=== PATIENT | female | born 1970 | race Caucasian/White ===

== ENCOUNTER → 2019-01-27 12:28 | Outpatient (CLI) | payer BC, SELFPAY ==
--- NOTE | 2019-01-27 12:33 | XR_ITS ---
PROCEDURE: XR FOOT LT MIN 3V CLINICAL INDICATION: LT FOOT PAIN COMPARISON: No exams were available for comparison FINDINGS: No fracture or dislocation. No lytic or blastic change. There is normal mineralization. The joint spaces are well-preserved. No significant degenerative/arthritic changes. No erosive changes evident. There is a 14 mm calcaneal spur without erosive change Other findings:None. IMPRESSION: Calcaneal spur otherwise negative Dictated by: Kristian Ellison MD 01/27/2019 14:13 Signed by: <Electronically signed by Kristian Ellison MD in [place]> 01/27/2019 14:13
== END ==
PROVIDERS: PCP Internal Medicine Adolescent Medicine; Visit Provider Internal Medicine Adolescent Medicine
DX: M79.672 Pain in left foot (principal)
CPT/HCPCS: 73630

== ENCOUNTER → 2019-04-30 10:34 | Outpatient (CLI) | payer BC, SELFPAY ==
--- NOTE | 2019-04-30 10:38 | XR_ITS ---
PROCEDURE: XR FOOT WT BEARING LT 3V CLINICAL INDICATION: metatarsalgia, Capusulitis Foot pain COMPARISON: XR FOOT LT MIN 3V from 01/27/2019 FINDINGS: No fracture or dislocation. No lytic or blastic change. There is normal mineralization. The joint spaces are well-preserved. No significant degenerative/arthritic changes. No erosive changes evident. Other findings:There is borderline pes planus. There is a prominent calcaneal spur without erosive change. IMPRESSION: Borderline pes planus with prominent calcaneal spur Dictated by: Kristian Ellison MD 04/30/2019 15:00 Electronically signed by Kristian Ellison MD in [place] 04/30/2019 15:00
== END ==
PROVIDERS: PCP Internal Medicine Adolescent Medicine; Visit Provider Podiatrist
DX: M77.41 Metatarsalgia, right foot (principal); M77.42 Metatarsalgia, left foot; M77.52 Other enthesopathy of left foot and ankle
CPT/HCPCS: 73630

== ENCOUNTER → 2019-06-04 09:53 | Outpatient (CLI) | payer BC, SELFPAY ==
--- NOTE | 2019-06-04 09:58 | MM_ITS ---
PROCEDURE: MM DIG SCREENING MAMM BI W/CAD CLINICAL INDICATION: SCREENING There is a history of breast cancer in the patient's paternal grandmother and paternal great grandmother. There has been a previous biopsy right breast for benign disease. COMPARISON: MA MAMMO DIAG DIGITL RT from 12/07/2015 DIAG MAMMO W/CAD BILAT from 11/27/2016 MAMMO DIAGNOSTIC DIGITAL TOMOSYNTHESIS BILATERAL W CAD from 02/26/2018 TECHNIQUE: Standard CC and MLO images were obtained. R2 CAD reviewed. FINDINGS: Scattered diffuse fibroglandular densities are seen throughout both breasts. There is a biopsy clip just deep to the nipple right breast 12 o'clock position. A couple of benign-appearing microcalcifications are seen in each breast. There is a small asymmetric density inner quadrant right breast which was seen on the previous mammogram 02/26/2018 from [place], [place]. Additional spot views of this area was obtained on the previous study showing no suspicious abnormality. There are no suspicious microcalcifications. IMPRESSION: Fibrofatty parenchyma with no suspicious lesions seen BI-RAD Category: 2 Benign Finding(s) FOLLOW-UP: 1YR 1 Year Follow-up (A letter has been sent to the patient regarding results of the study.) Dictated by: Dr. Shaka Fowler MD 06/09/2019 11:[address] Shaka Fowler MD in [place] 06/09/2019 11:42
== END ==
PROVIDERS: PCP Internal Medicine Adolescent Medicine; Visit Provider Obstetrics & Gynecology Gynecology
DX: Z12.31 Encounter for screening mammogram for malignant neoplasm of breast (principal)
CPT/HCPCS: 77067

== ENCOUNTER 2019-07-27 09:00 | Outpatient (RCR) | payer OTHER, SELFPAY ==
--- NOTE | 2019-07-21 15:00 | HMH.PTOPEV ---
PT Outpatient Evaluation Rehab PT Outpatient Evaluation Start: 07/21/19 14:08 Freq: Status: Active Protocol: Document 07/21/19 14:47 PHOCAIO (Rec: 07/21/19 15:00 PHORNE [id number]) Electronically Signed By Perico Rangel, PT 07/21/19 14:47 Outpatient Therapy Subjective History Subjective History Pt is 49 yowf who presents with c/o pain in B feet, L > R , x ~ 4 mos. She reports pain is worst at 2nd MTP jt B. She reports her symptoms have been aggravated by continuing to do Karate until very recently. She had recent injections by [facility] which helped considerably since she stopped Karate. She reports PMH of hyperflexibility in jts, asthma, diverticulitis, celiac disease. Chief Complaint Pain Symptom Type Ache,Sharp,Burning,Numbness, Tingling Symptoms Relieved By Rest/Positioning Symptoms Aggravated By Standing,Walking Prior Functional Limitations None Current Functional Limitations Standing,Recreation Activity, Walking Symptom Description Constant but Variable Level of pain today (0-10) 3 Pain scale - at its worst (0-10) 9 Ankle/Foot Eval Gait Observation General Gait Pattern Observation Antalgic Gait Palpation Tenderness left Ankle/Foot Palpation Findings Tenderness Ankle/Foot Palpation Overall Comment 2nd MTP Special Tests Ankle Anterior Drawer Test Negative Left,Negative Right Ankle Eversion Test Negative Left,Negative Right Talar Tilt Test Negative Left,Negative Right Ankle Inversion (supination) Test Negative Left,Negative Right Ankle Posterior Drawer Test Negative Left,Negative Right Outpatient Therapy Assessment Impairments Problems/Impairmments Palpation Tenderness,Impaired Gait Pattern,Impaired Walking, Impaired Standing,Impaired Recreational Activities, Subjective C/O Pain,Impaired Self Care/Self Management Prognosis Rehab Potential Fair Clinical Impression Consistent with Diagnosis Yes Short Term Goals Number of Weeks 4 Decreased Palpation Tenderness Yes: to min Improve Gait Pattern with Assistive Yes Device Decrease Subjective C/O Pain Yes: 07/20 Patient to be Ind w/ 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
== END 2019-07-27 09:05 | disposition home or self-care (01) ==
LOC: PT 09:00
PROVIDERS: PCP Internal Medicine Adolescent Medicine; Visit Provider Podiatrist
DX: M77.52 Other enthesopathy of left foot and ankle (principal); M77.51 Other enthesopathy of right foot and ankle; M79.672 Pain in left foot
CPT/HCPCS: 97010; 97014; 97035; 97110; 97140; 97163; G0283

== ENCOUNTER 2019-12-27 17:13 | Emergency (ER) | payer SELFPAY ==
[2019-12-27 17:32] VITALS: BP 154/91; PULSE 106; RESP 20; TEMP 36.8; O2SAT 97; BMI 34.3
[2019-12-27 17:47] VITALS: BP 156/91; PULSE 107; RESP 16; TEMP 36.6; O2SAT 98; BMI 34.2
--- NOTE | 2019-12-27 17:55 | ECG_ITS ---
APPROVED REPORT Exam: Resting ECG HR:94 bpm ECG Measurements Heart Rate 94 AXES NH 146 P 71 QRSd 88 QRS 29 QT 366 T 43 QTc 457 <Conclusion> Normal sinus rhythm Normal ECG Electronically signed by : Pedro Luis Hernandez, 12/28/2019 17:37:17
[2019-12-27 17:56] VITALS: BP 138/81; PULSE 94; O2SAT 96
--- NOTE | 2019-12-27 17:56 | XR_ITS ---
PROCEDURE: XR CHEST PORTABLE CLINICAL HISTORY: CHEST PAIN COMPARISON: No exams were available for comparison FINDINGS: The cardiomediastinal silhouette and pulmonary vascularity are within normal limits. The lungs are clear without infiltrates, suspicious nodules, or pleural effusions. There are monitor lines overlying the chest. No acute bony abnormalities. IMPRESSION: No acute findings. Dictated by: Dr. Shaka Fowler MD 12/27/2019 19:[address] Shaka Fowler MD in [place] 12/27/2019 19:25
--- NOTE | 2019-12-27 17:59 | HMH.EDCP ---
ED Disposition Clinical Impression: Hypertension Qualifiers: Hypertension type: essential hypertension Qualified Code(s): I10 - Essential (primary) hypertension Disposition: Home, Self-Care Condition on Discharge: Good Instructions: DI for Atypical Chest Pain Referrals: Jose Luis Viramontes MD [Primary Care Provider] - - Critical Care Critical Care Time: No Attestation: On 12/27/19, the high probability of a clinically significant, sudden or life threatening deterioration of the following system(s) required my full and direct attention, intervention and personal management. The time I documented below is in addition to time spent performing reported procedures but includes the following listed in this critical care notation. Medical Decision Making - Medical Records Medical records reviewed: Yes: I reviewed the patient's medical records. - Sesar Inquiry Pt receiving controlled substance: No Sesar was queried for this patient: No Vital Signs: 12/27/19 17:32 12/27/19 17:47 12/27/19 17:56 Temperature 98.3 F 98 F Temperature Source Oral Oral Pulse Rate [Left Brachial] 106 H 107 H 94 H Respiratory Rate 20 16 Blood Pressure [Left Arm] 154/91 H 156/91 H 138/81 Blood Pressure Mean [Left Arm] 112 112 100 Blood Pressure Source [Left Arm] Automatic Cuff Automatic Cuff Blood Pressure Position [Left Arm] Sitting Sitting Sitting 02 Sat by Pulse Oximetry 97 98 96 Oxygen Delivery Method Room Air Room Air Room Air - Lab Data Lab results reviewed: Yes: I reviewed the patient's lab results. Lab Results 12/27/19 18:15: WBC 6.8, RBC 4.81, Hgb 15.6, Hct 43.1, MCV 89.7, MCH 32.5 H, MCHC 36.3 H, RDW 12.8, Plt Count 239, MPV 7.5, Neut % (Auto) 53.0, Lymph % (Auto) 38.6, Andrews % (Auto) 5.4, Eos % (Auto) 2.5, Baso % (Auto) 0.5, Neut # (Auto) 3.6, Lymph # (Auto) 2.6, Andrews # (Auto) 0.4, Eos # (Auto) 0.2, Baso # (Auto) 0.0 12/27/19 18:15: Sodium 137, Potassium 3.7, Chloride 98, Carbon Dioxide 25, Anion Gap 17.7 H, BUN 12, Creatinine 0.50 L, Estimated Creat Clear 224, Estimated GFR 132, Est GFR ( Amer) 160, Glucose 198 H, Calcium 10.0 12/27/19 18:15: NT-Pro-B Natriuret Pep 20.1 Result diagrams: 12/27/19 18:15 12/27/19 18:15 Orders (Tests/Meds): ORDERS Category Date Time Status XR chest portable Stat Exams 12/27/19 17:56 Taken Basic Metabolic Panel Stat Lab 12/27/19 18:15 Results Trop T [Troponin I] Stat Lab 12/27/19 18:15 Results Troponin I Q3H Lab 12/27/19 21:00 Ordered Troponin I Q3H Lab 12/28/19 00:00 Ordered - ECG Data Tracing #1 Normal Sinus Rhythm: Yes Chest Pain HPI - General Chief Complaint: Chest Pain Stated Complaint: Problem with blood pressure Time Seen by Provider: 12/27/19 17:59 Mode of Arrival: Ambulatory Source of Information: Patient Limitations: No Limitations Description of Symptoms (Recalled from ER Triage Doc. by RN): PT SENT TO ED FROM [facility] FOR EVAL FOR C/O INDIGESTION, GENERALIZED WEAKNESS, LT SIDE NECK AND JAW PRESSURE STARTING TODAY. PT STATES I JUST DIDN'T FEEL RIGHT, I CAN'T EXPLAIN IT SEEN SATURDAY BY PCP FOR HTN STARTED HCTZ. PT DENIES SOB, VOMITING. - History of Present Illness HPI narrative: This is a 49-year-old female that presents with approximately 12-hour history of intermittent chest pain equivalent. Patient denies chest pain but reports feeling funny in her jaw . She also reports concern for her blood pressure reporting that she was recently placed on hydrochlorothiazide 12 mg p.o. daily due to elevated blood pressure of approximately 150/90 by her PCP. She reported this had only been started 3 days ago but her ported that by the next day her blood pressure had returned to normal. She does have concerned that her blood pressure is back near her premedication level of 150/90. She denies any shortness of breath lower extremity edema diaphoresis nausea vomiting orthopnea associated with her current symptoms. Symptoms are neither exacerbated or
--- NOTE | 2019-12-27 18:04 | PC.NURSE ---
Rad at bedside
[2019-12-27 18:21] LABS: Basophils % 0.5 % (0.1-2.0); Eosinophils # 0.2 K/mm3 (0.0-0.4); Eosinophils % 2.5 % (0.1-12.0); Hematocrit 43.1 % (37.0-47.0); Hemoglobin 15.6 g/dL (12.2-16.2); Lymphocytes # 2.6 K/mm3 (0.7-4.5); Lymphocytes % 38.6 % (10-50); Mean Corpuscular HGB Conc 36.3 g/dL (31.8-35.4); Mean Corpuscular Hemoglobin 32.5 pg (27.0-31.2); Mean Corpuscular Volume 89.7 fl (81-99); Mean Platelet Volume 7.5 fl (7.4-10.4); Monocytes # 0.4 K/mm3 (0.1-1.0); Monocytes % 5.4 % (1.7-9.3); Neutrophils # 3.6 K/mm3 (1.8-7.8); Platelet Count 239 K/mm3 (142-424); Red Blood Count 4.81 M/mm3 (4.20-5.40); Red Cell Distribution Width 12.8 % (11.5-17.5); White Blood Count 6.8 K/mm3 (4.8-10.8)
[2019-12-27 18:29] LABS: Anion Gap 17.7 mEq/L (5-15); Blood Urea Nitrogen 12 mg/dl (7-17); Carbon Dioxide 25 mmol/L (22.0-30.0); Chloride 98 mmol/L (98-107); Creatinine Clearance Estimated 224 mL/min (50-200); Estimated Glomerular Filt Rate 132 ml/min (>60); GFR (African American) 160 ML/MIN (>60); Glucose 198 mg/dl (74-100); Potassium 3.7 mmoL/L (3.5-5.1); Sodium 137 mmol/L (136-145)
[2019-12-27 18:38] LABS: NT Pro Brain Natriuretic Pep. 20.1 pg/mL (0-125)
[2019-12-27 18:49] LABS: Troponin I < 0.01 ng/ml (0.00-0.034)
[2019-12-27 18:56] VITALS: BP 138/81; PULSE 92; RESP 16; TEMP 36.6; O2SAT 97
== END 2019-12-27 18:58 | disposition home or self-care (01) ==
LOC: UTC 17:21 → ER 17:37
PROVIDERS: Emergency Medicine; Emergency Provider Emergency Medicine; PCP Internal Medicine Adolescent Medicine
DX: R68.84 Jaw pain (principal); I10 Essential (primary) hypertension; J45.909 Unspecified asthma, uncomplicated; Z88.5 Allergy status to narcotic agent; Z79.899 Other long term (current) drug therapy
CPT/HCPCS: 71045; 80048; 83880; 84484; 85025; 93005; 99283

== ENCOUNTER 2020-01-16 20:42 | Emergency (ER) | payer MEDICAID, SELFPAY ==
--- NOTE | 2020-01-16 21:06 | XR_ITS ---
PROCEDURE: XR FOOT RT MIN 3V CLINICAL INDICATION: horse jumped on patients foot Pain right COMPARISON: XR FOOT WT BEARING LT 3V from 04/30/2019 FINDINGS: There does appear to be cortical discontinuity along the medial aspect and mid aspect of the distal phalanx of the great toe suggesting a nondisplaced fracture age indeterminate. Please correlate with patient's area of pain and tenderness. The joint spaces are well-preserved. No significant degenerative/arthritic changes. No erosive changes evident. Other findings:None. IMPRESSION: Possible nondisplaced fracture of the great toe distal phalanx Dictated b Kristian Ellison MD 01/17/2020 07:02 Kristian Ellison MD in [place] 01/17/2020 07:02
[2020-01-16 21:07] VITALS: BP 141/79; PULSE 93; RESP 14; TEMP 36.7; O2SAT 100; BMI 34.0
--- NOTE | 2020-01-16 21:19 | HMH.EDUTC ---
[facility] Disposition Clinical Impression: Contusion Qualifiers: Encounter type: initial encounter Contusion area: foot Laterality: right Qualified Code(s): S90.31XA - Contusion of right foot, initial encounter Disposition: Home, Self-Care Condition on Discharge: Good Instructions: Contusion Additional Instructions: elevated ice 20 mins then remove for 20 mins and repeat ever hour if needed follow up with ortho if symtpoms worsen or do not improve return or be seen in ed keep brace in place until cleared by ortho Referrals: Samir Young MD [Primary Care Provider] - Manda Goncalves MD [Physician] - Time of Disposition: 21:25 Medical Decision Making - Sesar Inquiry Pt receiving controlled substance: No Vital Signs: 01/16/20 21:07 Temperature 98.1 F Temperature Source Oral Pulse Rate [Radial] 93 H Respiratory Rate 14 Blood Pressure [Right Arm] 141/79 H Blood Pressure Mean [Right Arm] 99 Blood Pressure Source [Right Arm] Automatic Cuff Blood Pressure Position [Right Arm] Sitting 02 Sat by Pulse Oximetry 100 Oxygen Delivery Method Room Air Orders (Tests/Meds): ORDERS Category Date Time Status XR foot RT min 3V Stat Exams 01/16/20 21:06 Taken - Radiology Data #1 Image(s): Foot/Toes Image Reviewed: Yes I reviewed the patient's radiology image w/the ED provider Preliminary Findings: No Fracture Seen [facility] HPI - General Chief complaint: Urgent Treatment Center Stated complaint: AO [id number] @1900 R foot injury Time Seen by Provider: 01/16/20 21:20 Mode of Arrival: Ambulatory Source of Information: Patient Limitations: No Limitations Description of Symptoms (Recalled from Triage Doc. by RN): horse jumped on right foot HEENT Symptoms (Recalled from RN notes): No Resp Symptoms (Recalled from RN notes): No Skin Symptoms (Recalled from RN notes): No MS Symptoms (Recalled from RN notes): Yes Functional Status (Recalled from RN notes): wnl - History of Present Illness Provider Complaint: 49 yr female presents for rt foot injury. Pt states at 7 pm she was steppped on by her horse and now she can not move the first four toes on her rt foot. - Related Data Home Medications Medication Instructions Recorded Confirmed Albuterol Sulfate [Albuterol 8.5 gm IH DAILYP PRN 12/27/19 12/27/19 Sulfate Hfa] Budesonide/Formoterol Fumarate 1 puff IH DAILY 12/27/19 12/27/19 [Symbicort 80-4.5 Mcg Inhaler] Diclofenac Sodium [Voltaren 100gm 1 applicatio TP TID 12/27/19 12/27/19 Topical Gel] hydroCHLOROthiazide 12.5 mg PO DAILY 12/27/19 12/27/19 [Hydrochlorothiazide 12.5mg Tab] Allergies Allergy/AdvReac Type Severity Reaction Status Date / Time codeine Allergy Verified 12/27/19 17:45 - Worker's Comp Is this a Worker's Comp case?: No [facility] History - Hepatitis A Screen Drug use history?: No High risk sexual behaviors?: No History of sexually transmitted infection?: No Currently employed?: No Childcare worker?: No Do you have indoor plumbing?: Yes Do you have electricity?: Yes Attestation statement:: This patient has been screened for Hepatitis A risk factors. I have reviewed the patient's past medical history: Yes Medical History: Reports:: Asthma Other Medical History: Reports: Sickle Cell Disease, Other Laterality Cases: Bilateral: Carpal Tunnel Release Other Surgeries: Yes: No Previous Surgery Fractures: Yes Comment: removal of sigmoid colon - Social History Smoking Status: Never smoker Alcohol Intake: never Alcohol Intake Frequency:: holidays/special occasions only Occupational Status: other Family Hx:: Coronary Artery Disease, Heart Attack, Cancer, Hypertension ROS Obtained: Yes Systems reviewed as appropriate & no additional complaints - Constitutional Constitutional: Reports system reviewed and no additional complaints, except as docu, Denies fever(s) - Eyes Eyes: Reports system reviewed and no additional complaints, except as docu, Denies change in visio
[2020-01-16 21:45] VITALS: BP 141/79; PULSE 93; RESP 14; TEMP 36.7; O2SAT 100
== END 2020-01-16 21:46 | disposition home or self-care (01) ==
PROVIDERS: Emergency Provider Nurse Practitioner Family; PCP Emergency Medicine
DX: S90.31XA Contusion of right foot, initial encounter (principal); W55.19XA Other contact with horse, initial encounter; Y92.73 Farm field as the place of occurrence of the external cause; Z88.6 Allergy status to analgesic agent; J45.909 Unspecified asthma, uncomplicated
CPT/HCPCS: 73630; 99201

== ENCOUNTER → 2020-01-19 18:02 | Outpatient (CLI) | payer MEDICAID, SELFPAY ==
[2020-01-19 18:36] LABS: Basophils % 0.4 % (0.1-2.0); Eosinophils # 0.1 K/mm3 (0.0-0.4); Eosinophils % 1.9 % (0.1-12.0); Hematocrit 43.6 % (37.0-47.0); Hemoglobin 15.4 g/dL (12.2-16.2); Lymphocytes # 2.3 K/mm3 (0.7-4.5); Lymphocytes % 36.7 % (10-50); Mean Corpuscular HGB Conc 35.4 g/dL (31.8-35.4); Mean Corpuscular Hemoglobin 32.2 pg (27.0-31.2); Mean Corpuscular Volume 91.1 fl (81-99); Mean Platelet Volume 8.5 fl (7.4-10.4); Monocytes # 0.3 K/mm3 (0.1-1.0); Monocytes % 5.4 % (1.7-9.3); Neutrophils # 3.4 K/mm3 (1.8-7.8); Neutrophils % 55.6 % (37.0-80.0); Platelet Count 283 K/mm3 (142-424); Red Blood Count 4.79 M/mm3 (4.20-5.40); Red Cell Distribution Width 12.6 % (11.5-17.5); White Blood Count 6.2 K/mm3 (4.8-10.8)
[2020-01-19 18:51] LABS: Alanine Aminotransferase 100 U/L (12-78); Albumin Level 4.6 g/dl (3.5-5.0); Albumin/Globulin Ratio 1.6 (1.1-1.8); Alkaline Phosphatase 70 U/L (38-126); Anion Gap 18.3 mEq/L (5-15); Aspartate Amino Transferase 98 U/L (14-36); Bilirubin,Total 1.2 mg/dl (0.2-1.3); Blood Urea Nitrogen 13 mg/dl (7-17); Calcium 9.7 mg/dl (8.4-10.2); Carbon Dioxide 23 mmol/L (22.0-30.0); Chloride 101 mmol/L (98-107); Chol/HDL Ratio 5.1 (1-3.5); Cholesterol 275 mg/dl (140-200); Estimated Glomerular Filt Rate 132 ml/min (>60); GFR (African American) 160 ML/MIN (>60); Globulin 2.9 g/dL (1.3-3.2); Glucose 159 mg/dl (74-100); HDL Cholesterol 54 mg/dl (40-60); Potassium 4.3 mmoL/L (3.5-5.1); Sodium 138 mmol/L (136-145); Total Protein,Serum 7.5 g/dl (6.3-8.2)
[2020-01-19 18:55] LABS: Triglycerides 490 mg/dl (30-150)
[2020-01-19 19:11] LABS: T4 (Thyroxine) 11.2 ug/dl (5.53-11.0)
[2020-01-19 19:12] LABS: Direct LDL Cholesterol 152.65 mg/dL (100-129)
[2020-01-19 19:13] LABS: 25-OH Vitamin D, Total 37.1 ng/mL (30-100)
[2020-01-19 19:24] LABS: Thyroid Stimulating Hormone 4.03 uIU/mL (0.465-4.68)
== END ==
PROVIDERS: Visit Provider Nurse Practitioner Family
DX: I10 Essential (primary) hypertension (principal); J45.20 Mild intermittent asthma, uncomplicated
CPT/HCPCS: 80053; 80061; 82306; 84436; 84443; 85025

== ENCOUNTER → 2020-03-17 14:01 | Outpatient (CLI) | payer OTHER, MEDICAID, SELFPAY ==
--- NOTE | 2020-03-17 | US_ITS ---
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 R2 CAD reviewed. FINDINGS: There is average fibroglandular tissue. Post biopsy changes are present on the right with a clip in the upper aspect of the right breast slightly medial. There is an area of asymmetric density in the medial aspect of the right breast which appears stable and does appear to compress out on focal spot compression views.. Benign-appearing calcifications are noted. There is a stable nodular density in the retroareolar region. Scattered fibroglandular elements noted on the left. Asymmetry noted in the superior left breast felt to be due to fibroglandular tissue stable. There is an area of asymmetry in the central aspect of the left breast measuring approximately 6 mm and does not appear significantly changed dating back to 11/27/2016. Right breast ultrasound: Shadowing noted in the 12 o'clock region possibly due to biopsy clip. In the 4 o'clock region there is a hyperechoic nodule at 12 mm with central area of decreased echogenicity possibly due to a lipoma. No suspicious nodules are evident. Small nodes are present in the axilla. Left breast ultrasound: A subcutaneous hyperechoic nodules present at 10 o'clock measuring 16 mm with some decreased echogenicity centrally and may be due to a lipoma. Small nodes are present in the axilla. IMPRESSION: BI-RAD Category: 2 Benign Finding(s) FOLLOW-UP: 1YR 1 Year Follow-up (A letter has been sent to the patient regarding results of the study.) Dictated by: Kristian Ellison MD 03/21/2020 10:06 Kristian Ellison MD in [place] 03/21/2020 10:06
== END ==
PROVIDERS: PCP Internal Medicine Adolescent Medicine; Visit Provider Obstetrics & Gynecology Gynecology
DX: N64.52 Nipple discharge (principal)
CPT/HCPCS: 76641; 77062; 77066; G0279

== ENCOUNTER → 2020-09-29 13:06 | Outpatient (CLI) | payer OTHER, SELFPAY | PROVIDERS: PCP Internal Medicine Adolescent Medicine; Visit Provider Nurse Practitioner Family | DX: Z01.812 Encounter for preprocedural laboratory examination (principal); Z11.52 Encounter for screening for COVID-19; M79.673 Pain in unspecified foot | CPT/HCPCS: U0003 ==

== ENCOUNTER → 2020-12-31 10:20 | Outpatient (CLI) | payer OTHER, SELFPAY | PROVIDERS: PCP Internal Medicine Adolescent Medicine; Visit Provider Internal Medicine Adolescent Medicine | DX: Z20.822 Contact with and (suspected) exposure to COVID-19 (principal) | CPT/HCPCS: U0003 ==

== ENCOUNTER → 2021-06-08 11:08 | Outpatient (CLI) | payer OTHER, SELFPAY | PROVIDERS: Visit Provider Nurse Practitioner | DX: Z20.822 Contact with and (suspected) exposure to COVID-19 (principal) | CPT/HCPCS: C9803; U0003; U0005 ==

== ENCOUNTER → 2021-06-27 15:38 | Outpatient (CLI) | payer OTHER, SELFPAY | PROVIDERS: PCP Internal Medicine Adolescent Medicine; Visit Provider Internal Medicine Adolescent Medicine | DX: U07.1 COVID-19 (principal); R68.89 Other general symptoms and signs | CPT/HCPCS: 87275; 87276; C9803; U0003; U0005 ==

== ENCOUNTER 2022-04-10 06:31 | Day surgery (SDC) | payer OTHER, SELFPAY ==
[2022-04-10 07:00] VITALS: BP 134/64; PULSE 88; RESP 18; TEMP 36.1; O2SAT 95; BMI 31.3
[2022-04-10 07:07] LABS: POC Glucose,Bedside 120 (70-110)
--- NOTE | 2022-04-10 07:18 | EXP.ANES.CKL ---
PFSH PFS Medical History (Updated 04/10/22 @ 06:56 by Carmine Sanchez RN) Anxiety and depression Asthma Celiac disease Diabetes Diverticulitis HLD (hyperlipidemia) HTN (hypertension) Hypothyroid Surgical History (Updated 04/10/22 @ 06:57 by Carmine Sanchez RN) History of carpal tunnel release History of colon resection History of foot surgery Family History (Updated 04/10/22 @ 06:58 by Carmine Sanchez RN) Other Family history of cancer Family history of cardiomyopathy Social History (Updated 04/10/22 @ 06:59 by Carmine Sanchez RN) Smoking Status: Never smoker alcohol intake: never substance use type: denies use current occupational status: employed Travel in the last 8 weeks: None household members: spouse and family housing: house [facility] Anesthesia Checklist Patient Identification Patient Identification: Arm Band and Family Structural Data Admitted From: Direct Admit Planned Operative Procedure/s: EGD Consent for Planned Operative Procedure(s) Verified: Yes Verified Documents: Surgical Consent and History and Physical NPO Status Verified Time NPO: 00:00 Additional verifications Patient : No Anesthesia Reactions: No Hx Blood Transfusions: No Blood Transfusion Reaction: No Cephalosporin Allergy: No Previous Colonoscopy: Yes Airway Assessment C-Spine Mobility Assessed: Yes TMJ Mobility Assessed: Yes Dentition: Good Dentition Neurological Assessment Level of Consciousness: Awake, Alert, Appropriate and Follows Commands Hx Seizures: No Numbness or tingling in extremities: No Genitourinary Assessment Voided poison information specialist to O.R.: Yes Anesthesia Plan Anesthesia Risk discussed: Yes ASA Class: II Anesthesia Type: MAC
[2022-04-10 07:39] LABS: Urine Pregnancy, HCG Qual. Negative (Negative)
[2022-04-10 07:44] VITALS: O2SAT 95
--- NOTE | 2022-04-10 08:03 | HMH.SCOPE ---
Procedure: Date: 04/10/22 Patient Date of :: 1970 Procedure Performed:: Esophagogastroduodenoscopy with biopsy Indications:: Upper abdominal pain Dyspepsia Abdominal bloat/belching Performing Provider:: Yossi Luis MD Referring Provider:: Dr. Hernandez Sedation:: Monitored anesthesia care Procedure:: After informed consent was obtained the patient was taken to the endoscopy suite. Sedation ensued after the patient was transferred to the left lateral decubitus position. Pulse, blood pressure, and oxygen saturation were monitored throughout the procedure. The endoscope was advanced beyond the duodenal bulb. Retroflexion within the gastric lumen was accomplished. The gastroscope was carefully removed and the patient was transferred to recovery in stable condition. Please see findings and specimens below for detail. Findings:: Gastroesophageal junction at 42 cm Patchy inflammation distally Focal lobulated inflammatory change in antrum (possible healed ulcer ) Specimens:: Biopsy of antrum (lobulated focal inflammatory change) Recommendations:: Follow-up pathology Continue proton pump inhibition May benefit from UGI/SBFT May benefit from gastric emptying scan May benefit from gastroenterology consultation Complications:: No immediate Estimated blood obtained (mL): 1
[2022-04-10 08:07] VITALS: BP 122/72; PULSE 85; RESP 16; TEMP 36.6; O2SAT 97
[2022-04-10 08:17] VITALS: BP 125/81; PULSE 83; RESP 16; O2SAT 95
[2022-04-10 08:27] VITALS: BP 136/83; PULSE 78; RESP 16; O2SAT 97
[2022-04-10 08:37] VITALS: BP 141/83; PULSE 81; RESP 16; TEMP 36.6; O2SAT 96
== END 2022-04-10 08:46 | disposition home or self-care (01) ==
PROVIDERS: PCP Internal Medicine Adolescent Medicine; Visit Provider Surgery
PROC: 0DJ08ZZ Inspection of Upper Intestinal Tract, Via Natural or Artificial Opening Endoscopic (ICD-10-PCS; CPT 43235; principal; 2022-04-10 07:30)
DX: K31.9 Disease of stomach and duodenum, unspecified (principal); R10.13 Epigastric pain; Z79.899 Other long term (current) drug therapy; E11.9 Type 2 diabetes mellitus without complications
CPT/HCPCS: 43239; 81025; 82962

== ENCOUNTER 2022-10-16 08:30 | Outpatient (RCR) | payer MEDICAID, SELFPAY | END 2022-10-16 08:35 | disposition home or self-care (01) | LOC: PT 08:30 | PROVIDERS: PCP Internal Medicine Adolescent Medicine; Visit Provider Physician Assistant | DX: M19.90 Unspecified osteoarthritis, unspecified site (principal); M46.1 Sacroiliitis, not elsewhere classified | CPT/HCPCS: 97010; 97014; 97110; 97140; 97163; G0283 ==

== ENCOUNTER → 2022-11-09 15:12 | Outpatient (CLI) | payer MEDICAID, SELFPAY | PROVIDERS: PCP Internal Medicine Adolescent Medicine; Visit Provider Physician Assistant | DX: R35.0 Frequency of micturition (principal); B96.29 Other Escherichia coli [E. coli] as the cause of diseases classified elsewhere | CPT/HCPCS: 87086; 87088; 87186 ==

== ENCOUNTER → 2023-04-02 14:37 | Outpatient (CLI) | payer MEDICAID, SELFPAY ==
[2023-04-02 15:37] LABS: 25-OH Vitamin D, Total 53.9 ng/mL (30-100)
[2023-04-02 16:10] LABS: Vitamin B12 806 pg/mL (239-931)
== END ==
PROVIDERS: PCP Internal Medicine Adolescent Medicine; Visit Provider Physician Assistant
DX: F33.8 Other recurrent depressive disorders (principal); Z68.35 Body mass index [BMI] 35.0-35.9, adult
CPT/HCPCS: 36415; 82306; 82607

== ENCOUNTER 2023-10-23 10:51 | Outpatient (CLI) | payer MEDICAID, SELFPAY ==
[2023-10-23 11:19] LABS: Basophils # 0.1 K/mm3 (0-0.2); Basophils % 0.9 % (0.1-2.0); Eosinophils # 0.3 K/mm3 (0.0-0.4); Eosinophils % 4.9 % (0.1-12.0); Hemoglobin 14.7 g/dL (12.2-16.2); Lymphocytes # 2.2 K/mm3 (0.7-4.5); Lymphocytes % 38.5 % (10-50); Mean Corpuscular HGB Conc 32.6 g/dL (31.8-35.4); Mean Corpuscular Hemoglobin 30.3 pg (27.0-31.2); Mean Platelet Volume 8.1 fl (7.4-10.4); Monocytes # 0.3 K/mm3 (0.1-1.0); Monocytes % 5.2 % (1.7-9.3); Neutrophils # 2.8 K/mm3 (1.8-7.8); Neutrophils % 50.5 % (37.0-80.0); Platelet Count 201 K/mm3 (142-424); Red Blood Count 4.84 M/mm3 (4.20-5.40); Red Cell Distribution Width 13.4 % (11.5-17.5); White Blood Count 5.6 K/mm3 (4.8-10.8)
== END 2023-10-23 23:59 | disposition home or self-care (01) ==
LOC: LAB 10:53
PROVIDERS: PCP Internal Medicine Adolescent Medicine; Visit Provider Allergy & Immunology
DX: L50.1 Idiopathic urticaria (principal); L50.8 Other urticaria; D72.10 Eosinophilia, unspecified
CPT/HCPCS: 36415; 85025

== ENCOUNTER 2025-06-08 15:03 | Outpatient (CLI) | payer MEDICAID, SELFPAY ==
--- OUTSIDE RECORDS SUMMARY | 2024-06-29 04:00 | XMS_ITS ---
Author Organization [facility] Address [address] [place], [place] [address] Care Team Providers Care Station Cashier Name Role Phone Pedro Luis Hernandez Primary Care Provider Pedro Luis Hernandez Unavailable Unavailable REASON FOR VISIT 4 month check up Encounters Encounter Location Date Provider Diagnosis [facility] [address] [place], [place] [address] 06/29/2024 Pedro Luis Hernandez Plan Of Treatment Next Appt Details Provider Name:Pedro Luis Hernandez, 08/11/2025 09:00:00 AM, [address], [address], [place], [address], Progress Notes * Yoko GRIGGSDOB:1970 (55 yo F)Acc No.[id number]:06/29/2024 Progress Notes Patient: Yoko [place] Provider: Andrea Hernandez MD :1970 A ge:54 Y S ex:Female Date:06/29/2024 Address:[address] [id number] Subjective: * Chief Complaints: * 4 month check up * Electronic signature of Rufino Hernandez MD FAAP on 06/08/2025 at 03:06 PM EST Sign off status: Pending * Provider: Andrea Hernandez MD Date: 0 06/29/2024 Generated for Emma barnett/Roselia/Dania on: 1 03:06 PM EST
--- OUTSIDE RECORDS SUMMARY | 2024-09-12 16:30 | XMS_ITS ---
Author Organization [facility] D [facility] Address [address] [place] [address] Care Team Providers Care Promotional Demonstrator Name Role Phone Pedro Luis Hernandez Primary Care Provider Pedro Luis Hernandez Unavailable Unavailable Migration, Provider Unavailable Unavailable Allergies Allergen (clinical drug ingredient) Drug/Non Drug Allergy documented on EMR Reaction Allergy Type Onset Date Status hydrochlorothiazide hydroCHLOROthiazide dizziness D rug Allergy Active codeine Codeine hives, SOA Drug Allergy Active REASON FOR VISIT [facility] To [facility] Conversion Encounter Medications Medication SIG (Take, Route, Frequency, Duration) Notes Start Date End Date Status PEN NEEDLES, 31GX1/4 1 SUBCUTANEOUSLY ONCE WEEKLY; Duration: 30 DAYS *Please review for potential replacement for e-prescription and drug interaction check* Active Losartan Potassium 25 MG Tablet 1 tab(s) orally 1 tab 3 times a week, 1/2 tab all other days; Duration: 84 days Active Albuterol Sulfate HFA 108 (90 Base) MCG/ACT Aerosol Solution 2 INH inhaled every 6 hours as needed for wheezing or shortness of breath; Duration: 30 days 05/18/2024 Active Atorvastatin Calcium 40 MG Tablet 1 tab(s) orally once a day; Duration: 90 day(s) Active metFORMIN HCl 1000 MG Tablet 1 tab(s) orally 2 times a day; Duration: 30 day(s) Active Aspirin 81 MG Tablet Delayed Release 1 tab(s) orally once a day Active VITAMIN B COMPLEX 100 once daily *Please review for potential replacement for e-prescription and drug interaction check* Active Multivitamin - Tablet 1 tab(s) orally once a day; Duration: 30 day(s) Active Diclofenac Sodium 1 % Gel as directed applied topically 4 times a day prn prn Active Famotidine 20 MG Tablet 1 tab(s) orally once a day; Duration: 90 days Active Melatonin 10 MG TABLET, EXTENDED RELEASE 1 TAB(S) ORALLY ONCE A DAY (AT BEDTIME) prn *Please review and pick correct strength-formulati on from Exanetspan options. If intended option is not shown, discontinue and re-order from Quick Search* Active Magnesium 400MG 1 TABLET ONCE A DAY *Please revi ew and pick correct strength-formulati on from Maizhuoan options. If intended option is not shown, discontinue and re-order from Quick Search* Active Synthroid 75 MCG Tablet 1 tab(s) orally once a day; Duration: 90 days Active Glimepiride 2 MG Tablet 1 tab(s) orally once a day; Duration: 30 days 07/15/2024 Active ZyrTEC Allergy 10 MG Tablet 2 tabs orally once a day Active Jardiance 25 MG Tablet 1 tab(s) orally once a day (in the morning); Duration: 90 days Active FLUoxetine HCl 40 MG Capsule 1 cap(s) orally once a day; Duration: 90 days Active Encounters Encounter Location Date Provider Diagnosis [facility] [address] [facility] [address] [facility] [address] [place] [address] 09/12/2024 Provider Migration Plan Of Treatment Medication Medication Name Sig Start Date Stop Date Notes Losartan Potassium 25 MG Tablet 1 tab(s) orally 1 tab 3 times a week, 1/2 tab all other days; Duration: 84 days Synthroid 75 MCG Tablet 1 tab(s) orally once a day; Duration: 90 days Glimepiride 2 MG Tablet 1 tab(s) orally once a day; Duration: 30 days 07/15/2024 Jardiance 25 MG Tablet 1 tab(s) orally o nce a day (in the morning); Duration: 90 days FLUoxetine HCl 40 MG Capsule 1 cap(s) or ally once a day; Duration: 90 days Next Appt Details Provider Name:Pedro Luis Hernandez, 08/11/2025 09:00:00 AM, [address] [place] [facility] [address] [facility], [address], [place], [address], Progress Notes * Yoko GRIGGSDOB:1970 (55 yo F)Acc No.[id number]:09/12/2024 Patient: Yoko England Provider: Phil Oreilly :1970 A ge:54 Y S ex:Female Date:09/12/2024 Address:[facility] [place], [id number] Pcp:Pedro Luis Hernandez Subjective: * Chief Complaints: * M ultum To [facility] Conversion Encounter * Medications: T akingZyrTEC Allergy 10 MG Tablet 2 tabs orally once a day Melatonin 10 MG TABLET, EXTENDED RELEASE 1 TAB(S) ORALLY ONCE A DAY (AT BEDTIME) , Notes to Pharmacist: prn *Please review and pick correct strength-formulation from Exanetspan options. If intended option is not shown, discontinue and re-order from Quick Search*Magnesium 400MG 1 TABLET ONCE A DAY , Notes to Pharmacist: *Please review and pick correct strength-formulation from Exanetspan options. If intended option is not shown, discontinue and re-order from Quick Search*Aspirin 81 MG Tablet Delayed Release 1 tab(s) orally once a day VITAMIN B COMPLEX 100 , Notes to Pharmacist: once daily *Please review for potential replacement for e-prescription and drug interaction check*Multivitamin - Tablet 1 tab(s) orally once a day Diclofenac Sodium 1 % Gel as directed applied topically 4 times a day prn , Notes to Pharmacist: prnFamotidine 20 MG Tablet 1 tab(s) orally once a day PEN NEEDLES, 31GX1/4 1 SUBCUTANEOUSLY ONCE WEEKLY , Notes to Pharmacist: *Please review for potential replacement for e-prescription and drug interaction check*Albuterol Sulfate HFA 108 (90 Base) MCG/ACT Aerosol Solution 2 INH inhaled every 6 hours as needed for wheezing or shortness of breath Atorvastatin Calcium 40 MG Tablet 1 tab(s) orally once a day metFORMIN HCl 1000 MG Tablet 1 tab(s) orally 2 times a day Taking ZyrTEC Allergy 10 MG Tablet 2 tabs orally once a day Taking Melatonin 10 MG TABLET, EXTENDED RELEASE 1 TAB(S) ORALLY ONCE A DAY (AT BEDTIME) , Notes to Pharmacist: prn *Please review and pick correct strength-formulation from Exanetspan options. If intended option is not shown, discontinue and re-order from Quick Search*Taking Magnesium 400MG 1 TABLET ONCE A DAY , Notes to Pharmacist: *Please review and pick correct strength-formulation from Exanetspan options. If intended option is not shown, discontinue and re-order from Quick Search*Taking Aspirin 81 MG Tablet Delayed Release 1 tab(s) orally once a day Taking VITAMIN B COMPLEX 100 , Notes to Pharmacist: once daily *Please review for potential replacement for e-prescription and drug interaction check*Taking Multivitamin - Tablet 1 tab(s) orally once a day Taking Diclofenac Sodium 1 % Gel as directed applied topically 4 times a day prn , Notes to Pharmacist: prnTaking Famotidine 20 MG Tablet 1 tab(s) orally once a day Taking PEN NEEDLES, 31GX1/4 1 SUBCUTANEOUSLY ONCE WEEKLY , Notes to Pharmacist: *Please review for potential replacement for e-prescription and drug interaction check*Taking Albuterol Sulfate HFA 108 (90 Base) MCG/ACT Aerosol Solution 2 INH inhaled every 6 hours as needed for wheezing or shortness of breath Taking Atorvastatin Calcium 40 MG Tablet 1 tab(s) orally once a day Taking metFORMIN HCl 1000 MG Tablet 1 tab(s) orally 2 times a day * Allergies: C odeine: hives, SOAhydroCHLOROthiazide: dizziness Plan: * Treatment: * Electronic signature of Venecia bone Migration on 06/08/2025 at 03:07 PM EST Sign off status: Pending * Provider: Phil ha Migration Date: 0 09/12/2024 Generated for Emma barnett/Roselia/Dania on: 03:07 PM EST
--- OUTSIDE RECORDS SUMMARY | 2025-01-11 03:45 | XMS_ITS ---
Author Organization [facility] Address [address] [place] [address] [place], [place] [address] Care Team Providers Care Geneticist Name Role Phone Pedro Luis Hernandez Primary Care Provider Pedro Luis Hernandez Unavailable Unavailable REASON FOR VISIT 6 Month F/U Encounters Encounter Location Date Provider Diagnosis [facility] [address] [place] [address] [place], [place] [address] 01/11/2025 Pedro Luis Hernandez Plan Of Treatment Next Appt Details Provider Name:Pedro Luis Hernandez, 08/11/2025 09:00:00 AM, [address] [place] [address], [address], [place], [address], Progress Notes * Yoko GRIGGSDOB:1970 (55 yo F)Acc No.[id number]:01/11/2025 Progress Notes Patient: Yoko [place] Provider: Andrea Hernandez MD :1970 A ge:54 Y S ex:Female Date:01/11/2025 Address[id number] Subjective: * Chief Complaints: * 6 Month F/U * Electronic signature of Rufino Hernandez MD FAAP on 06/08/2025 at 03:06 PM EST Sign off status: Pending * Provider: Andrea Hernandez MD Date: 0 01/11/2025 Generated for Emma barnett/Roselia/Dania on: 1 03:06 PM EST
--- OUTSIDE RECORDS SUMMARY | 2025-04-28 13:15 | XMS_ITS | Encounter Summary ---
Author Organization [facility] Address [address] [place] [address] Care Team Providers Care [employer] Art Teacher Name Role Phone Pedro Luis Hernandez MD Primary Care Provider [phone] Encounter Details Date Type Department Care Team (Latest Contact Info) Description 04/28/2025 1:15 PM EST - 04/28/2025 11:59 PM EST Hospital Encounter [facility] Breast [facility] [address] [address] Encounter for screening mammogram for malignant neoplasm of breast Discharge Disposition: Home or Self Care Social History Tobacco Use Types Packs/Day Years Used Date Smoking Tobacco: Never Smokeless Tobacco: Never Alcohol Use Standard Drinks/Week Comments No 0 (1 standard drink = 0.6 oz pure alcohol) Alcoholic Drinks/day: No history of alcohol use Comments No Sex and Gender Information Value Date Recorded Sex Assigned at Not on file Legal Sex Female 8:05 PM EDT Gender Identity Not on file Sexual Orientation Not on file documented as of this encounter Last Filed Vital Signs Vital Sign Reading Time Taken Comments Blood Pressure - - Pulse - - Temperature - - Respiratory Rate - - Oxygen Saturation - - Inhaled Oxygen Concentration - - Weight 89.4 kg (197 lb) 04/28/2025 1:49 PM EST Height 172.7 cm (5' 8 ) 04/28/2025 1:49 PM EST Body Mass Index 29.95 04/28/2025 1:49 PM EST documented in this encounter Functional Status * BMI (Calculated) Answer Date of Assessment Author 30 04/28/2025 1:49 PM EST Omar White * Percent Excess Weight Loss Answer Date of Assessment Author 0 04/28/2025 1:49 PM EST Christopher, J anice * Total Weight Change Percent Answer Date of Assessment Author 2222 04/28/2025 1:49 PM EST Christopher, J anice * Weight Change Since Preop Answer Date of Assessment Author 89.34 04/28/2025 1:49 PM EST Christopher, J anice * Initial Excess Weight Answer Date of Assessment Author -63.5 04/28/2025 1:49 PM EST Christopher, J anice * IBW in lbs (Bariatric) Answer Date of Assessment Author 140 04/28/2025 1:49 PM EST Christopher, J anice * Weight Change Since Last Visit Answer Date of Assessment Author 89.34 04/28/2025 1:49 PM EST Christopher, J anice * IBW in kg (Bariatric) Answer Date of Assessment Author 63.5 04/28/2025 1:49 PM EST Christopher, J anice * Percent of IBW Answer Date of Assessment Author 4,963.78 04/28/2025 1:49 PM EST Christopher, J anice * EBW (kg) Answer Date of Assessment Author 3,150.2 04/28/2025 1:49 PM EST Christopher, J anice * EBW (lbs) Answer Date of Assessment Author 3,143.25 04/28/2025 1:49 PM EST Christopher, J anice * Weight Change 24 hrs Answer Date of Assessment Author -.341 04/28/2025 1:49 PM EST Christopher, J anice * BSA (Calculated - sq m) Answer Date of Assessment Author 2.07 04/28/2025 1:49 PM EST Christopher, J anice * BMI (Calculated) Answer Date of Assessment Author 29.96 04/28/2025 1:49 PM EST Christopher, J anice * IBW/kg (Calculated) Male Answer Date of Assessment Author 68.4 04/28/2025 1:49 PM EST Christopher, J anice * IBW/kg (Calculated) Female Answer Date of Assessment Author 63.9 04/28/2025 1:49 PM EST Christopher, J anice * IBW/kg (Calculated) Answer Date of Assessment Author 63.9 04/28/2025 1:49 PM EST Christopher, J anice * Weight in (lb) to have BMI = 25 Answer Date of Assessment Author 164.1 04/28/2025 1:49 PM EST Christopher, J anice * BMI (Calculated) Answer Date of Assessment Author 30 04/28/2025 1:49 PM EST Christopher, J anice * Percent Excess Weight Loss Answer Date of Assessment Author 0 04/28/2025 1:49 PM EST Christopher, J anice * Weight Change Since Preop Answer Date of Assessment Author 89.36 04/28/2025 1:49 PM EST Christopher, J anice * Initial Excess Weight Answer Date of Assessment Author -63.5 04/28/2025 1:49 PM EST Christopher, J anice * IBW in kg (Bariatric) Answer Date of Assessment Author 63.5 04/28/2025 1:49 PM EST Christopher, J anice * IBW in lb (Bariatric) Answer Date of Assessment Author 140 04/28/2025 1:49 PM EST Christopher, J anice * Weight Change Since Last Visit Answer Date of Assessment Author 89.36 04/28/2025 1:49 PM EST Christopher, J anice * Percent of IBW Answer Date of Assessment Author 140.71 04/28/2025 1:49 PM EST Christopher, J anice * EBW (kg) Answer Date of Assessment Author 25.84 04/28/2025 1:49 PM EST Christopher, J anice * EBW (lb) Answer Date of Assessment Author 57 04/28/2025 1:49 PM EST Christopher, J anice * Difference in Weight Since Last Visit Answer Date of Assessment Author -0.34 04/28/2025 1:49 PM EST Christopher, J anice * IBW/kg (Calculated) Answer Date of Assessment Author 63.9 04/28/2025 1:49 PM EST Christopher, J anice * Adult Low Range Vt 6mL/kg Answer Date of Assessment Author 383.4 04/28/2025 1:49 PM EST Christopher, J anice * Adult Moderate Range Vt 8mL/kg Answer Date of Assessment Author 511.2 04/28/2025 1:49 PM EST Christopher, J anice * Adult High Range Vt 10mL/kg Answer Date of Assessment Author 639 04/28/2025 1:49 PM EST Christopher, J anice * Enter Height and Weight Question Answer Date of Assessment Author Height 68 04/28/2025 1:49 PM EST Absto n, Karine Weight 3152 04/28/2025 1:49 PM EST Absto n, Karine * BSA (Calculated - sq m) Answer Date of Assessment Author 2.07 04/28/2025 1:49 PM EST Christopher, J anice * BMI (Calculated) Answer Date of Assessment Author 29.96 04/28/2025 1:49 PM EST Christopher, J anice * Weight in (lb) to have BMI = 25 Answer Date of Assessment Author 164.1 04/28/2025 1:49 PM EST Christopher, J anice * Enter Height and Weight Question Answer Date of Assessment Author Height 68 04/28/2025 1:49 PM EST Absto n, Karine Weight 3152 04/28/2025 1:49 PM EST Absto n, Karine documented as of this encounter Mental Status * BMI (Calculated) Answer Entry Date Author 30 04/28/2025 1:49 PM EST Christopher, J anice * Percent Excess Weight Loss Answer Entry Date Author 0 04/28/2025 1:49 PM EST Christopher, J anice * Total Weight Change Percent Answer Entry Date Author 2222 04/28/2025 1:49 PM EST Christopher, J anice * Weight Change Since Preop Answer Entry Date Author 89.34 04/28/2025 1:49 PM EST Christopher, J anice * Initial Excess Weight Answer Entry Date Author -63.5 04/28/2025 1:49 PM EST Christopher, J anice * IBW in lbs (Bariatric) Answer Entry Date Author 140 04/28/2025 1:49 PM EST Christopher, J anice * Weight Change Since Last Visit Answer Entry Date Author 89.34 04/28/2025 1:49 PM EST Christopher, J anice * IBW in kg (Bariatric) Answer Entry Date Author 63.5 04/28/2025 1:49 PM EST Christopher, J anice * Percent of IBW Answer Entry Date Author 4,963.78 04/28/2025 1:49 PM EST Christopher, J anice * EBW (kg) Answer Entry Date Author 3,150.2 04/28/2025 1:49 PM EST Christopher, J anice * EBW (lbs) Answer Entry Date Author 3,143.25 04/28/2025 1:49 PM EST Christopher, J anice * Weight Change 24 hrs Answer Entry Date Author -.341 04/28/2025 1:49 PM EST Christopher, J anice * BSA (Calculated - sq m) Answer Entry Date Author 2.07 04/28/2025 1:49 PM EST Christopher, J anice * BMI (Calculated) Answer Entry Date Author 29.96 04/28/2025 1:49 PM EST Christopher, J anice * IBW/kg (Calculated) Male Answer Entry Date Author 68.4 04/28/2025 1:49 PM EST Christopher, J anice * IBW/kg (Calculated) Female Answer Entry Date Author 63.9 04/28/2025 1:49 PM EST Christopher, J anice * IBW/kg (Calculated) Answer Entry Date Author 63.9 04/28/2025 1:49 PM EST Christopher, J anice * Weight in (lb) to have BMI = 25 Answer Entry Date Author 164.1 04/28/2025 1:49 PM EST Christopher, J anice * BMI (Calculated) Answer Entry Date Author 30 04/28/2025 1:49 PM EST Christopher, J anice * Percent Excess Weight Loss Answer Entry Date Author 0 04/28/2025 1:49 PM EST Christopher, J anice * Weight Change Since Preop Answer Entry Date Author 89.36 04/28/2025 1:49 PM EST Christopher, J anice * Initial Excess Weight Answer Entry Date Author -63.5 04/28/2025 1:49 PM EST Christopher, J anice * IBW in kg (Bariatric) Answer Entry Date Author 63.5 04/28/2025 1:49 PM EST Christopher, J anice * IBW in lb (Bariatric) Answer Entry Date Author 140 04/28/2025 1:49 PM EST Christopher, J anice * Weight Change Since Last Visit Answer Entry Date Author 89.36 04/28/2025 1:49 PM EST Christopher, J anice * Percent of IBW Answer Entry Date Author 140.71 04/28/2025 1:49 PM EST Christopher, J anice * EBW (kg) Answer Entry Date Author 25.84 04/28/2025 1:49 PM EST Omar Whiteice * EBW (lb) Answer Entry Date Author 57 04/28/2025 1:49 PM EST Omar Whiteice * Difference in Weight Since Last Visit Answer Entry Date Author -0.34 04/28/2025 1:49 PM EST Omar Whiteice * IBW/kg (Calculated) Answer Entry Date Author 63.9 04/28/2025 1:49 PM EST Omar White anice * Adult Low Range Vt 6mL/kg Answer Entry Date Author 383.4 04/28/2025 1:49 PM EST Omar White anice * Adult Moderate Range Vt 8mL/kg Answer Entry Date Author 511.2 04/28/2025 1:49 PM EST Omar White anice * Adult High Range Vt 10mL/kg Answer Entry Date Author 639 04/28/2025 1:49 PM EST Omar Whiteice * Enter Height and Weight Question Answer Entry Date Author Height 68 04/28/2025 1:49 PM EST Absto n, Karine Weight 3152 04/28/2025 1:49 PM EST Absto n Karine documented in this encounter Medications at Time of Discharge aspirin 81 MG EC tablet 10/24/2020 atorvastatin (Lipitor) 40 MG tablet Take 1 tablet (40 mg) by mouth 1 (one) time each day. cetirizine (ZyrTEC) 10 MG tablet Take 2 tablets by mouth daily. Daily Multiple Vitamins tablet 1 (one) time each day at the same time. empagliflozin (Jardiance) 25 MG Take 1 tablet (25 mg) by mouth 1 (one) time each day. PATIENT NEEDS TO SCHEDULE AN APPOINTMENT TO RECEIVE FURTHER REFILLS 90 tablet 03/05/2024 famotidine (Pepcid) 20 MG tablet Take 1 tablet by mouth daily. FLUoxetine (PROzac) 40 MG capsule Take 1 capsule by mouth daily. levothyroxine (Tirosint) 75 MCG capsule Take by mouth 1 (one) time each day before breakfast. losartan (Cozaar) 25 MG tablet Take 1 tablet (25 mg) by mouth 1 (one) time each day. 0.5 tab orally once a day Magnesium Gluconate (MAGNESIUM 27 PO) Take by mouth. metFORMIN XR (Glucophage-XR) 500 MG 24 hr tablet Take 1 tablet (500 mg) by mouth 1 (one) time each day with dinner. Do not crush, chew, or split. documented as of this encounter Plan of Treatment Not on file documented as of this encounter Procedures Procedure Name Priority Date/Time Associated Diagnosis Comments MAMMOGRAPHY BREAST SCREENING TOMOSYNTHESIS BILATERAL Routine 04/28/2025 1:58 PM EST Encounter for screening mammogram for malignant neoplasm of breast documented in this encounter Results * Mammography Breast Screening Tomosynthesis Bilateral (04/28/2025 1:58 PM EST) Anatomical Region Laterality Modality Breast Bilateral Mammography Impressions 04/29/2025 2:33 PM EST No mammographic evidence of malignancy. BI-RADS CATEGORY: Overall: 2 - Benign RECOMMENDATION: - Routine Screening Mammogram in 1 Year. Patient Lifetime Risk Score of Breast Malignancy: 12.6% This risk assessment is calculated using the Alida Risk Assessment model which may underestimate the lifetime risk of breast malignancy. COMMUNICATION: Computer-aided detection (CAD) and tomosynthesis were utilized by the radiologist in the interpretation of this examination. The results and recommendations will be sent to the patient in a printed lay language version of the imaging report. Narrative 04/29/2025 2:33 PM EST EXAM: Mammography Breast Screening with Tomosynthesis REASON FOR EXAM: Screening Mammogram HISTORY: Patient is 55 y.o. Family medical history includes breast cancer in 2 relatives (mother's sister, paternal grandmother (comments: Family history of malignant neoplasm of breast)) and colon cancer in paternal grandmother (comments: Family history of malignant neoplasm of colon). Hormone history includes control (10-15 years). Surgical and procedural history include right breast biopsy, 15+years ago (Biopsy of right breast from [facility]) and right breast biopsy, 12/28/2020 (ultrasound core-Proliferative fibrocystic changes with prominent apocrine metaplasia. No atypical features identified.). COMPARISON STUDIES: Compared to: 12/26/2020 Mammography Breast Diagnostic Tomosynthesis Bilateral at [facility] 01/10/2022 Mammography Breast Screening Tomosynthesis Bilateral at [facility] 01/18/2023 Mammography Breast Screening Tomosynthesis Bilateral at [facility] 03/04/2024 Mammography Breast Screening Tomosynthesis Bilateral at [facility] BREAST COMPOSITION: There are scattered areas of fibroglandular density. FINDINGS: There are post-biopsy clip(s) present in the right breast. There is no evidence of suspicious masses, calcifications, or other abnormal findings. us Adela Bean MD IMG BI PROCEDURES Final Result documented in this encounter Visit Diagnoses Diagnosis Encounter for screening mammogram for malignant neoplasm of breast documented in this encounter Additional Health Concerns Assessment Noted Time A fall risk assessment has been complete d for the patient 11/06/2022 9:33 AM EDT A Body Mass Index follow-up plan has been documented for the patient 11/10/2024 3:56 PM EDT documented as of this encounter Care Teams [employer] Art Teacher Relationship Specialty Start Date End Date Pedro Luis Hernandez MD [facility] [id number] PCP - General Internal Medicine 01/18/23 documented as of this encounter
--- OUTSIDE RECORDS SUMMARY | 2025-05-17 06:45 | XMS_ITS ---
Author Organization [facility] D [place] Address [address] [place] [address] Care Team Providers Care Vb Net Programmer Name Role Phone Pedro Luis Hernandez Primary Care Provider Pedro Luis Hernandez Unavailable Unavailable Allergies Allergen (clinical drug ingredient) Drug/Non Drug Allergy documented on EMR Reaction Allergy Type Onset Date Status hydrochlorothiazide hydroCHLOROthiazide dizziness D rug Allergy Active codeine Codeine hives, SOA Drug Allergy Active Results Component Value Reference Range Flag Notes BASIC METABOLIC PANEL (40204 ) Reviewed date:05/19/2025 03:20:15 PM Interpretation: Performing Lab:CB, [id number], [id number] Lonnie Douglas Notes/Report: NON-FASTING; NON-FASTING GLUCOSE 124 65-99 mg/dL H Fasting reference interval For someone without known diabetes, a glucose value between 100 and 125 mg/dL is consistent with prediabetes and should be confirmed with a follow-up test. UREA NITROGEN (BUN) 20 7-25 mg/dL N CREATININE 0.57 0.50-1.03 mg/dL N EGFR 109 > OR = 60 mL/min/1.73m2 N BUN/CREATININE RATIO SEE NOTE: 6-22 (calc) Not Reported: BUN and Creatinine are within reference range. SODIUM 137 135-146 mmol/L N POTASSIUM 4.4 3.5-5.3 mmol/L N CHLORIDE 103 98-110 mmol/L N CARBON DIOXIDE 26 20-32 mmol/L N CALCIUM 9.3 8.6-10.4 mg/dL N HEMOGLOBIN A1c (496) Reviewed date:05/19/2025 03:20:15 PM Interpretation: Performing Lab:STEFANIE, [facility] [facility], [id number] Lonnie Josh Douglas Notes/Report: NON-FASTING; NON-FASTING HEMOGLOBIN A1c 7.5 <5.7 % H For someone without known diabetes, a hemoglobin A1c value of 6.5% or greater indicates that they may have diabetes and this should be confirmed with a follow-up test. For someone with known diabetes, a value <7% indicates that their diabetes is well controlled and a value greater than or equal to 7% indicates suboptimal control. A1c targets should be individualized based on duration of diabetes, age, comorbid conditions, and other considerations. Currently, no consensus exists regarding use of hemoglobin A1c for diagnosis of diabetes for children. REASON FOR VISIT Med check, labs Medications Medication SIG (Take, Route, Frequency, Duration) Notes Start Date End Date Status Famotidine 20 MG Tablet 1 tab(s) orally once a day; Duration: 90 days Active Jardiance 25 MG Tablet TAKE 1 TABLET BY MOUTH ONCE DAILY IN THE MORNING FOR 90 DAYS; Duration: 90 Active Melatonin 10 MG TABLET, EXTENDED RELEASE 1 TAB(S) ORALLY ONCE A DAY (AT BEDTIME) prn Active ZyrTEC Allergy 10 MG Tablet 2 tabs orally once a day Active Rybelsus 3 MG Tablet Take 1 tablet by mouth once daily; Duration: 30 Active metFORMIN HCl 1000 MG Tablet Take 1 tablet by mouth twice daily; Duration: 30 Active Atorvastatin Calcium 40 MG Tablet Take 1 tablet by mouth once daily; Duration: 90 Active Losartan Potassium 25 MG Tablet 1 tab(s) orally once a day; Duration: 84 days Active FLUoxetine HCl 40 MG Capsule Take 1 capsule by mouth once daily for 90 days; Duration: 90 Active Synthroid 75 MCG Tablet 1 tab(s) orally once a day; Duration: 90 days Active Multivitamin - Tablet 1 tab(s) orally once a day; Duration: 30 day(s) Active VITAMIN B COMPLEX 100 once a day Active Albuterol Sulfate HFA 108 (90 Base) MCG/ACT Aerosol Solution 2 INH inhaled every 6 hours as needed for wheezing or shortness of breath; Duration: 30 days 05/18/2024 Active PEN NEEDLES, 31GX1/4 1 SUBCUTANEOUSLY ONCE WEEKLY; Duration: 30 DAYS *Please review for potential replacement for e-prescription and drug interaction check* Active Diclofenac Sodium 1 % Gel as directed applied topically 4 times a day prn prn Active Aspirin 81 MG Tablet Delayed Release 1 tab(s) orally once a day Active Magnesium 400MG 1 TABLET ONCE A DAY Active Social History Tobacco Use: Social History Observation Description Date Details (start date - stop date) Never Smoker NA - NA Social History Social History Social Info Question Answer Notes Smoking: Are you a: nonsmoker Additional Details Category Social Info Options Details Social History 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 Travel outside [place]: no Alcohol: socially very rarely Sexually active: no Recreational drug use: no Exercise: yes Home smoke detector use: yes Caffeine: yes frequency:tea da almita Living Will No Vital Signs Temperature 97.8 degrees Fahrenheit 05/17/20 25 Blood pressure systolic 108 mm Hg 05/17/20 25 Blood pressure diastolic 68 mm Hg 025 Heart Rate 88 /min 05/17/2025 Height 67 in 05/17/2025 Weight 202.2 lbs 05/17/2025 BMI 31.67 kg/m2 05/17/2025 Encounters Encounter Location Date Provider Diagnosis [facility] [address] [place] [address] 05/17/2025 Pedro Luis Hernandez Type 2 diabetes mellitus with other specified complication E11.69 Assessments Encounter Date Diagnosis (ICD Code) Assessment Notes Treatment Notes Treatment Clinical Notes Section Notes 05/17/2025 Type 2 diabetes mellitus with other specified complication (ICD-10 - E11.69) Repeat A1c today; goal = 7.0% If not at goal, will increase Rybelsus to 7 mg dose for more adequate glycemic control if patient is agreeable Discussed adverse effects Plan Of Treatment Treatment Notes Assessment Notes Type 2 diabetes mellitus wit h other specified complication Repeat A1c today; goal = 7.0% If not at goal, will increase Rybelsus to 7 mg dose for more adequate glycemic control if patient is agreeable Discussed adverse effects Next Appt Details Follow Up: prn, Reason: Provider Name:Pedro Luis Hernandez, 08/11/2025 09:00:00 AM, [address], [address], [place], [address], History and Physical Notes * HPI (History of Present Illness) Category Sub-Category Detail Notes Category Not es gen Patient present s for 3-month follow-up and A1c re-check. Has started on Rybelsus 3 mg since last visit and is overall tolerating this well. Has some mild GI side effects, mostly nausea, which are rarely severe enough to force her to skip a dose-- this happens once every 1-2 weeks. She was unable to tolerate injection GLP-1 for this reason. Otherwise no complaints. Physical Examination Category Sub-Category Detail Notes Section Note s NTND Examination Category Sub-Category Detail Notes Category Not es General Examination Heart: Regular Rate and Rhythm, no murmur, rubs or gallops Lungs: LCTAB, No wheezes, c rackles or rhonchi, Good air movement, General Pleasant and Coopera tive, NAD on RA, Progress Notes * Yoko GRIGGSDOB:1970 (55 yo F)Acc No.[id number]:05/17/2025 Progress Notes Patient: Yoko MILIAN Provider: Andrea Hernandez MD :1970 A ge:55 Y S ex:Female Date:05/17/2025 Address:[facility] [place], [id number] Subjective: * Chief Complaints: * 1 . Med check, labs. * HPI: g en: Patient presents for 3-month follow-up and A1c re-check. Has started on Rybelsus 3 mg since last visit and is overall tolerating this well. Has some mild GI side effects, mostly nausea, which are rarely severe enough to force her to skip a dose-- this happens once every 1-2 weeks. She was unable to tolerate injection GLP-1 for this reason. Otherwise no complaints. * Medical History: * Surgical History: * Hospitalization/Major Diagno stic Procedure: * Family History: F ather: alive, Hyperlipidemia, skin cancer, diagnosed with Cancer, Heart Disease in 55. M other: alive, depression, breathing issues, asthma, diagnosed with Heart Disease. P aternal Grand Father: . P aternal Grand Mother: . M aternal Grand Father: , diagnosed with Mental Illness. M aternal Grand Mother: alive. P aternal uncle: alive. P aternal aunt: alive. M aternal aunt: alive. S iblings: alive, hyperlipidemia, Afib,, diagnosed with Heart Disease, Hypertension. Cassia vogel: alive. 1 brother(s) . 1 son(s) - healthy. .? * Social History: S moking A re you a: n onsmoker. R ecreational drug use: no. Exercise: yes. Home smoke detector use: yes. Caffeine: yes, frequency:tea daily. Living Will: No. Alcohol: socially, very rarely. Sexually active: no. Travel outside [place]: no. 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 * Medications: T aking ZyrTEC Allergy 10 MG Tablet 2 tabs orally once a day , Taking Melatonin 10 MG TABLET, EXTENDED RELEASE 1 TAB(S) ORALLY ONCE A DAY (AT BEDTIME) , Notes to Pharmacist: prn, Taking Magnesium 400MG 1 TABLET ONCE A DAY , Taking Aspirin 81 MG Tablet Delayed Release 1 tab(s) orally once a day , Taking VITAMIN B COMPLEX 100 , Notes to Pharmacist: once a day, Taking Multivitamin - Tablet 1 tab(s) orally once a day , Taking Diclofenac Sodium 1 % Gel as directed applied topically 4 times a day prn , Notes to Pharmacist: prn, Taking PEN NEEDLES, 31GX1/4 1 SUBCUTANEOUSLY ONCE WEEKLY , Notes to Pharmacist: *Please review for potential replacement for e-prescription and drug interaction check*, Taking Albuterol Sulfate HFA 108 (90 Base) MCG/ACT Aerosol Solution 2 INH inhaled every 6 hours as needed for wheezing or shortness of breath , Taking Synthroid 75 MCG Tablet 1 tab(s) orally once a day , Taking FLUoxetine HCl 40 MG Capsule Take 1 capsule by mouth once daily for 90 days , Taking Losartan Potassium 25 MG Tablet 1 tab(s) orally once a day , Taking Atorvastatin Calcium 40 MG Tablet Take 1 tablet by mouth once daily , Taking metFORMIN HCl 1000 MG Tablet Take 1 tablet by mouth twice daily , Taking Jardiance 25 MG Tablet TAKE 1 TABLET BY MOUTH ONCE DAILY IN THE MORNING FOR 90 DAYS , Taking Famotidine 20 MG Tablet 1 tab(s) orally once a day , Taking Rybelsus 3 MG Tablet Take 1 tablet by mouth once daily , Medication List reviewed and reconciled with the patient * Allergies: Cassia uriostegui: hives, SOA, hydroCHLOROthiazide: dizziness. Objective: * Vitals: N urse: KJ, Pain: 0, Temp: 97.8, RR: 18, HR: 88, BP: 108/68, Ht: 67, Wt: 202.2, BMI:31.67. * Examination: G eneral Examination: General P leasant and Cooperative, NAD on RA,. Heart: R egular Rate and Rhythm, no murmur, rubs or gallops. Lungs: L CTAB, No wheezes, crackles or rhonchi, Good air movement,. * Physical Examination: N TND. Assessment: * Assessment: 1. T ype 2 diabetes mellitus with other specified complication - E11.69 (Primary) ? Plan: * Treatment: Value Reference Range G LUCOSE 124 H 65-99 - mg/dL * U ANURAG NITROGEN (BUN) 20 7-25 - mg/dL * C REATININE 0.57 0.50-1.03 - mg/dL * B UN/CREATININE RATIO SEE NOTE: 11-29 - (calc) * S ODIUM 137 135-146 - mmol/L * P OTASSIUM 4.4 3.5-5.3 - mmol/L * C HLORIDE 103 98-110 - mmol/L * C ARBON DIOXIDE 26 20-32 - mmol/L * C ALCIUM 9.3 8.6-10.4 - mg/dL * E GFR 109 > OR = 60 - mL/min/1 .73m2 * Padmini Swan 05/19/2025 03:20:04 PM EST > Patient informedThis lab was reviewed by Padmini Swan on 05/19/2025 at 15:20 PM EST ?LAB: HEMOGLOBIN A1c (496)* Value Reference Range H EMOGLOBIN A1c 7.5 H <5.7 - % * Padmini Swan 05/19/2025 03:20:04 PM EST > Patient informedThis lab was reviewed by Padmini Swan on 05/19/2025 at 15:20 PM EST Notes: Repeat A1c today; goal = 7.0% If not at goal, will increase Rybelsus to 7 mg dose for more adequate glycemic control if patient is agreeable Discussed adverse effects?? * Follow Up: p rn * * Sign off status: Completed true * Provider: Andrea Hernandez MD Date: 07/18/2024 Generated for Emma barnett/Roselia/Dania on: 03:06 PM EST
--- OUTSIDE RECORDS SUMMARY | 2025-06-08 09:30 | XMS_ITS ---
Author Organization [facility] D [facility] Address [address] [facility] [address] [place] [address] Care Team Providers Care Gas Cutter Name Role Phone Pedro Luis Hernandez Primary Care Provider Pedro Luis Hernandez Unavailable Unavailable Evangelina Shelby Unavailable [phone] Allergies Allergen (clinical drug ingredient) Drug/Non Drug Allergy documented on EMR Reaction Allergy Type Onset Date Status hydrochlorothiazide hydroCHLOROthiazide dizziness D rug Allergy Active codeine Codeine hives, SOA Drug Allergy Active Results Component Value Reference Range Notes Rapid Strep (Not yet reviewe d by provider) Interpretation: Performing Lab: Notes/Report: Rapid screen neg REASON FOR VISIT cold, sore throat, ear pain, sore chest, runny nose, congestion, body aches, chills Medications Medication SIG (Take, Route, Frequency, Duration) Notes Start Date End Date Status Famotidine 20 MG Tablet 1 tab(s) orally once a day; Duration: 90 days Active metFORMIN HCl 1000 MG Tablet Take 1 tablet by mouth twice daily; Duration: 30 Active Jardiance 25 MG Tablet TAKE 1 TABLET BY MOUTH ONCE DAILY IN THE MORNING FOR 90 DAYS; Duration: 90 Active Rybelsus 7 MG Tablet 1 tablet at least 30 minutes before first food, beverage or other oral medicine of the day Orally Once a day; Duration: 30 days 05/19/2025 Active Losartan Potassium 25 MG Tablet 1 tab(s) orally once a day; Duration: 84 days Active Atorvastatin Calcium 40 MG Tablet Take 1 tablet by mouth once daily; Duration: 90 Active Synthroid 75 MCG Tablet 1 tab(s) orally once a day; Duration: 90 days Active FLUoxetine HCl 40 MG Capsule Take 1 capsule by mouth once daily for 90 days; Duration: 90 Active Albuterol Sulfate HFA 108 (90 Base) MCG/ACT Aerosol Solution 2 INH inhaled every 6 hours as needed for wheezing or shortness of breath; Duration: 30 days 05/18/2024 Active Multivitamin - Tablet 1 tab(s) orally once a day; Duration: 30 day(s) Active Aspirin 81 MG Tablet Delayed Release 1 tab(s) orally once a day Active Diclofenac Sodium 1 % Gel as directed applied topically 4 times a day prn prn Active PEN NEEDLES, 31GX1/4 1 SUBCUTANEOUSLY ONCE WEEKLY; Duration: 30 DAYS *Please review for potential replacement for e-prescription and drug interaction check* Active ZyrTEC Allergy 10 MG Tablet 2 tabs orally once a day Active Magnesium 400MG 1 TABLET ONCE A DAY Active Vital Signs Temperature 97.5 degrees Fahrenheit 06/08/20 25 Blood pressure systolic 132 mm Hg 06/08/20 25 Blood pressure diastolic 92 mm Hg 025 Heart Rate 98 /min 06/08/2025 Height 67 in 06/08/2025 Weight 202.8 lbs 06/08/2025 BMI 31.76 kg/m2 06/08/2025 Encounters Encounter Location Date Provider Diagnosis [facility] [address] [facility] [address] [place] [address] 06/08/2025 Evangelina Shelby Sore throat J02.9 and Acute URI J06.9 Assessments Encounter Date Diagnosis (ICD Code) Assessment Notes Treatment Notes Treatment Clinical Notes Section Notes 06/08/2025 Sore throat (ICD-10 - J02.9) 06/08/2025 Acute URI (ICD-10 - J06.9) Reassurance that her vitals today are completely normal but will obtain labs to rule out any significant abnormality given her low temperatures yesterday and her low blood pressure this morning. Continue good fluid intake, symptom management as she has been doing. No clear indication for antibiotics or additional testing at this time but return precautions reviewed Plan Of Treatment Pending Test Test Name Order Date Rapid Strep 06/08/2025 M-Complete Blood Count Auto Diff 025 M-Basic Metabolic Panel 06/08/2025 Next Appt Details Follow Up: prn, Reason: Provider Name:Pedro Luis Royce Besbrandee, 08/11/2025 09:00:00 AM, [address], [address], [place], [address], History and Physical Notes * HPI (History of Present Illness) Category Sub-Category Detail Notes Category Not es ENT/respiratory sore throat facial pain ear pain shortness of breath cough fever rhinorrhea nasal congestion Examination Category Sub-Category Detail Notes Category Not es ENT/Respiratory Oral Cavity erythema without exudate on pharynx Sinuses : non tender bilateral ly Ears: auditory canals norm al bilaterally, tympanic membranes normal bilaterally Neck : no cervical lymphade nopathy Heart : RRR, normal S1 S2, n o murmurs Lungs : clear to auscultatio n bilaterally, no crackles or wheezes General Appearance : well nourished and hydrated, alert Nose : turbinates red, mild congestion Skin : clear without rashes Progress Notes * Yoko GRIGGSDOB:1970 (55 yo F)Acc No.[id number]:06/08/2025 Progress Notes Patient: Yoko [place] Provider: CLEO Silva :1970 A ge:55 Y S ex:Female Date:06/08/2025 Address:[address] [place], [id number] Pcp:Pedro Luis Hernandez Subjective: * Chief Complaints: * 1 . Cold, sore throat, ear pain, sore chest, runny nose, congestion, body aches, chills. * HPI: E NT/respiratory: 55-year-old female presents today with a 5-day history of upper respiratory congestion, sore throat, ear pain. Sore throat and ear pain have been worse in the past 24 hours. She notes that yesterday her temperatures at home are in the 95- 96 range. Blood pressure last evening was higher than usual around 150/90 but this morning was low 90s/50s. She has been using cough drops, tea to help soothe her sore throat. She denies any known exposure to illness but did recently return from a vacation to [place]. 55 year old female presents with c/o sore throat. c/o nasal congestion. c/o ear pain. c/o rhinorrhea. c/o facial pain. Denies : cough. D enies : fever. D enies : shortness of breath. * ROS: R ESPIRATORY: no S hortness of breath. n o C hest congestion.?no C ough. C ONSTITUTIONAL: Loss of appetite y es. n o F ever. F atigue?yes. D ERMATOLOGY: no R rajan. G ASTROENTEROLOGY: no V omiting. n o D iarrhea. U ROLOGY: Reviewed, No Symptoms Reported: Y es. * Medical History: * Medications: T aking ZyrTEC Allergy 10 MG Tablet 2 tabs orally once a day , Taking Magnesium 400MG 1 TABLET ONCE A DAY , Taking Aspirin 81 MG Tablet Delayed Release 1 tab(s) orally once a day , Taking Multivitamin - Tablet 1 tab(s) orally [...] orally once a day , Taking Rybelsus 7 MG Tablet 1 tablet at least 30 minutes before first food, beverage or other oral medicine of the day Orally Once a day , Notes: Padmini Swan 05/19/2025 03:23:09 PM EST >, Discontinued Melatonin 10 MG TABLET, EXTENDED RELEASE 1 TAB(S) ORALLY ONCE A DAY (AT BEDTIME) , Notes to Pharmacist: prn, Discontinued VITAMIN B COMPLEX 100 , Notes to Pharmacist: once a day, Discontinued Rybelsus 3 MG Tablet Take 1 tablet by mouth once daily , Medication List reviewed and reconciled with the patient * Allergies: C odeine: hives, SOA, hydroCHLOROthiazide: dizziness. Allergies Verified. Objective: * Vitals: N urse: nm, Pain: 4, Temp: 97.5 F, RR: 18 /min, HR: 98 /min, BP: 132/92 mm Hg, Ht: 67 in, Wt: 202.8 lbs, BMI:31.76Index, Repeat BP: 132/84. * Examination: E NT/Respiratory: General Appearance : w ell nourished and hydrated, alert.? Ears: a uditory canals normal bilaterally, tympanic membranes normal bilaterally. Nose : t urbinates red, mild congestion. Sinuses : n on tender bilaterally. Oral Cavity e rythema without exudate on pharynx. Neck : n o cervical lymphadenopathy. Heart : R RR, normal S1 S2, no murmurs. Lungs : c lear to auscultation bilaterally, no crackles or wheezes. Skin : c lear without rashes. Assessment: * Assessment: 1. A cute URI - J06.9 (Primary) 2 . S ore throat - J02.9 Plan: * Treatment: 2. S ore throat L AB: Rapid Strep (Collection Date & Time - 06/08/2025) Value Reference Range R apid screen neg * Cecilia Mccauley Renee 06/08/2025 02:44:59 PM EST > * Procedure Codes: 8 7880 RAPID STREP, Modifiers: QW * Follow Up: p rn Billing Information: * Procedure Codes: 04327 RAPID STREP. Modifiers: QW * Sign off status: Completed true * Provider: CLEO Silva Date: Generated for Emma barnett/Roselia/Dania on: 03:07 PM EST
--- OUTSIDE RECORDS SUMMARY | 2025-06-08 15:06 | XMS_ITS | Encounter Summary ---
Author Organization [facility] Address [address] [place] [address] Care Team Providers Care Dock Worker Name Role Phone Jose Luis Viramontes MD Primary Care Provider [phone] Pedro Luis Hernandez MD Primary Care Provider [phone] Reason for Referral * Imaging (Routine) - Closed Specialty Diagnoses / Procedures Referred By Contac t Referred To Contact Radiology Diagnoses Breast cancer Procedures Mammography Breast Diagnostic Tomosynthesis Bilateral Cinthia Arroyo APRN [address] [place] [address] Phone: tel: fax: Referral ID Status Reason Start Date Expiration Date Visits Re quested Visits Authorized [id number] Closed 11/04/2020 05/03/2021 1 1 Encounter Details Date Type Department Care Team (Late st Contact Info) Description 11/04/2020 [facility] Only [facility] [address] [facility], [address]nd [place] [address] Cinthia Arroyo APRN [address] [place] [address] Breast cancer (CMS/HCC) (Primary Dx) Social History Tobacco Use Types Packs/Day Years Used Date Smoking Tobacco: Never Smokeless Tobacco: Never Alcohol Use Standard Drinks/Week Comments No 0 (1 standard drink = 0.6 oz pure alcohol) Alcoholic Drinks/day: No history of alcohol use Comments Unknown Sex and Gender Information Value Date Recorded Sex Assigned at Not on file Legal Sex Female 8:05 PM EDT Gender Identity Not on file Sexual Orientation Not on file documented as of this encounter Plan of Treatment Scheduled Orders Name Type Priority Associated Diagnoses Orde r Schedule US Breast Limited Right Imaging Routine Once for 1 Occur rences starting 07/18/2021 until 07/18/2021 documented as of this encounter Results * (ABNORMAL) Mammography Breast Diagnostic Tomosynthesis Bilateral (12/26/2020 8:15 AM EDT) Anatomical Region Laterality Modality Breast Bilateral Mammography Impressions 12/26/2020 10:09 AM EDT Right Breast BI-RADS Code: BI-RADS 4A. Low suspicion for malignancy. Left Breast BI-RADS Code: BI-RADS 1, Negative. RECOMMENDATIONS: Right Breast Recommendations: Ultrasound Guided Breast Biopsy Left Breast Recommendations: Routine Screening Mammogram in 1 Year CRITICAL RESULT: No. COMMUNICATION: The results and recommendations were discussed with the patient and a printed lay language version of the imaging report was given to the patient at the time of the visit. The mammogram was read with the assistance of CAD and tomosynthesis. Signed by Holly Hong on 12/26/2020 10:09 AM Narrative 12/26/2020 10:09 AM EDT Exam/Procedure: MAMMOGRAPHY BREAST DIAGNOSTIC TOMOSYNTHESIS BILATERAL ordered by CINTHIA ARROYO, [id number] CLINICAL INDICATION: History of right bloody nipple discharge TECHNIQUE: Bilateral diagnostic mammogram was performed. Computer assisted detection was used in the interpretation of this study. Tomosynthesis was used in the interpretation of this study. Multiplanar, lee scale directed ultrasound of the right breast with limited Doppler vascular ultrasound was performed. COMPARISON: 03/17/2020, 11/27/2016, 12/07/2015 FINDINGS: Breast Density: Scattered fibroglandular density Mammogram Findings: Stable tissue marker within the upper-outer quadrant of the right breast. 6 mm oval mass within the lateral aspect of the right breast 3.5 cm from the nipple. Ultrasound was performed for further evaluation. No suspicious calcifications or areas of architectural distortion. No suspicious masses, calcifications or areas of architectural distortion in the left breast. Right Breast Ultrasound Findings: Ultrasound of the right breast demonstrates a 6 mm hypoechoic oval mass, well-circumscribed without internal vascularity at 9:00, 4 cm from the nipple. Soft on elastography. Likely correlates with the mammographic finding. Procedure Note Holly Hong MD - 12/26/2020 Exam/Procedure: MAMMOGRAPHY BREAST DIAGNOSTIC TOMOSYNTHESIS BILATERALordered by CINTHIA ARROYO, [id number] CLINICAL INDICATION: History of right bloody nipple discharge TECHNIQUE: Bilateral diagnostic mammogram was performed. Computer assisted detection was used in the interpretation of this study.Tomosynthesis was used in the interpretation of this study. Multiplanar, lee scale directed ultrasound of the right breast withlimited Doppler vascular ultrasound was performed. COMPARISON: 03/17/2020, 11/27/2016, 12/07/2015 FINDINGS: Breast Density: Scattered fibroglandular density Mammogram Findings: Stable tissue marker within the upper-outer quadrantof the right breast. 6 mm oval mass within the lateral aspect of the rightbreast 3.5 cm from the nipple. Ultrasound was performed for furtherevaluation. No suspicious calcifications or areas of architecturaldistortion. No suspicious masses, calcifications or areas of architectural distortionin the left breast. Right Breast Ultrasound Findings: Ultrasound of the right breastdemonstrates a 6 mm hypoechoic oval mass, well-circumscribed withoutinternal vascularity at 9:00, 4 cm from the nipple. Soft on elastography.Likely correlates with the mammographic finding. IMPRESSION: Right Breast BI-RADS Code: BI-RADS 4A. Low suspicion for malignancy. Left Breast BI-RADS Code: BI-RADS 1, Negative. RECOMMENDATIONS: Right Breast Recommendations: Ultrasound Guided Breast Biopsy Left Breast Recommendations: Routine Screening Mammogram in 1 Year CRITICAL RESULT: No. COMMUNICATION: The results and recommendations were discussed with the patient and aprinted lay language version of the imaging report was given to thepatient at the time of the visit. The mammogram was read with theassistance of CAD and tomosynthesis. Signed by Holly Hong on 12/26/2020 10:09 AM us Cinthia Arroyo CLINICAL PHARMACY SPECIALIST IMG BI PROCEDURES Final Res ult documented in this encounter Visit Diagnoses Diagnosis Breast cancer- Primary Malignant neoplasm of breast (female), unspecified site Breast cancer Malignant neoplasm of breast (female), unspecified site documented in this encounter Care Teams Dock Worker Relationship Specialty Start Date End Date Jose Luis Viramontes MD [facility] [address] [address] PCP - General 10/21/20 01/17/23 Pedro Luis Hernandez MD [facility] [address] PCP - General Internal Medicine 01/18/23 documented as of this encounter
--- OUTSIDE RECORDS SUMMARY | 2025-06-08 15:06 | XMS_ITS | Encounter Summary ---
Author Organization [facility] Address [address] [place] [address] Care Team Providers Care Irrigation Flume Layer Name Role Phone Pedro Luis Hernandez MD Primary Care Provider [phone] Reason for Referral * Consultation (Routine) - Closed Specialty Diagnoses / Procedures Referred By Contac t Referred To Contact Endocrinology Diagnoses Hyperlipidemia, unspecified hyperlipidemia type Type 2 diabetes mellitus without complication, without long-term current use of insulin Hypothyroidism, unspecified type Pedro Luis Hernandez MD [facility] [address] [address] fax: Roslyn Charlton MD [address] [facility] [address] [place] [address] Phone: tel: fax: Referral ID Status Reason Start Date Expiration Date V isits Requested Visits Authorized [id number] Closed Specialty Services Required 10/28/2024 04/29/2026 1 1 Encounter Details Date Type Department Care Team (Latest Contact Info) Description 10/28/2024 [facility] [address] [place] [address] [place] [address] Hyperlipidemia, unspecified hyperlipidemia type (Primary Dx); Type 2 diabetes mellitus without complication, without long-term current use of insulin; Hypothyroidism, unspecified type Social History Tobacco Use Types Packs/Day Years [...] of this encounter Plan of Treatment Scheduled Referrals Name Type Priority Associated Diagnoses Orde r Schedule Ambulatory referral to Endocrinology Outpatient Referral Routine Hyperlipidemia, unspecified hyperlipidemia type Type 2 diabetes mellitus without complication, without long-term current use of insulin ([facility]) Hypothyroidism, unspecified type Ordered: 10/28/2024 documented as of this encounter Visit Diagnoses Diagnosis Hyperlipidemia, unspecified hyperlipidemia type- Primary Type 2 diabetes mellitus without complication, without long-term current use of insulin Hypothyroidism, unspecified type documented in this encounter Additional Health Concerns Assessment Noted Time A fall risk assessment has been complete d for the patient 11/06/2022 9:33 AM EDT A Body Mass Index follow-up plan has been documented for the patient 03/11/2023 6:59 PM EDT documented as of this encounter Care Teams Irrigation Flume Layer Relationship Specialty Start Date End Date Pedro Luis Hernandez MD [facility] [address] PCP - General Internal Medicine 01/18/23 documented as of this encounter
--- OUTSIDE RECORDS SUMMARY | 2025-06-08 15:06 | XMS_ITS | Clinical Summary ---
Author Organization [facility] Address [address] [place] [address] Care Team Providers Care Field Map Editor Name Role Phone Derek Ocasio MD Primary Care Provider Family History Medical History Relation Name Comments Ovarian cancer Neg Hx Relation Name Status Comments Other great-grandmother Social History Tobacco Use Types Packs/Day Years Used Date Smoking Tobacco: Never Assessed Abuse Screen Answer Date Recorded Unsafe at Home or Work/School Not on file Feels Threatened by Someone? Not on file 05/2023 Does Anyone Keep You from Co ntacting Others or Doint Things Outside the Home? Not on file 03/21/2023 Physical Sign of Abuse Present Not on file 1 Housing Stability Answer Date Recorded Current Living Arrangements Not on file 03/10 Potentially Unsafe Housing Conditions Not on cheryl e 03/21/2023 Family and Community Support Answer Andrea e Recorded Help with Day-to-Day Activities Not on file 03/21/2023 Lonely or Isolated Not on file 03/21/2023 Employment Answer Date Recorded Do you want help finding or keeping work or a kennedy b? Not on file 03/21/2023 Disabilities Answer Date Recorded Concentrating, Remembering, or Making Decisions Difficulty Not on file 03/21/2023 Doing Errands Independently Difficulty Not on fi le 03/21/2023 Education Answer Date Recorded Help with school or training? Not on file Preferred Language Not on file 03/21/2023 Comments No Sex and Gender Information Value Date Recorded Sex Assigned at Not on file Legal Sex Female 4:03 PM EDT Gender Identity Not on file Sexual Orientation Not on file Plan of Treatment Health Maintenance Due Date Last Done Comments ANNUAL PHYSICAL 1970 Annual Gynecologic Pelvic an d Breast Exam 1970 HEPATITIS C SCREENING 1972 TDAP/TD VACCINES (1 - Tdap) 02/27/1991 COLOGUARD 02/27/2017 COLON CANCER SCREENING 5 YEA R SIGMOIDOSCOPY 02/27/2017 COLONOSCOPY 02/27/2017 COLORECTAL CANCER SCREENING 02/27/2017 CT COLONOGRAPHY 02/27/2017 FECAL OCCULT BLOOD TEST 02/27/2017 FIT Testing (1 year) 02/27/2017 Pneumococcal Vaccine 50+ (1 of 1 - PCV) 02/27/2022 ZOSTER VACCINE (1 of 2) 02/27/2022 MAMMOGRAM 03/28/2022 03/28/2020, 03/10, 03/28/2020, Additional history exists INFLUENZA VACCINE 01/08/2025 Procedures Procedure Name Priority Date/Time Associated Diagnosis Comments MAMMO OUTSIDE FILMS Routine 03/28/2020 1 1:18 AM EDT H/O mammogram from Last 3 Months or Most Recently Relevant to Health Maintenance Results * MAMMO Outside Films (03/28/2020 11:18 AM EDT) Narrative SYSTEMGENERATED, DOCUMENTATION - 03/28/2020 11:18 AM EDT This procedure was auto-finalized with no dictation required. Yin Mccauley MD IMG MAMMOGRAPHY ORDERABLES Fin al Result from Last 3 Months or Most Recently Relevant to Health Maintenance Insurance [place] [id number] [employer] Care Teams Field Map Editor Relationship Specialty Start Date End Date Derek Ocasio MD [address] [place] [address] PCP - General Internal Medicine 02/26/18
--- OUTSIDE RECORDS SUMMARY | 2025-06-08 15:06 | XMS_ITS | Encounter Summary ---
Author Organization [facility] Address [address] [place] [address] Care Team Providers Care Auxiliary Equipment Operator Name Role Phone Jose Luis Viramontes MD Primary Care Provider [phone] Pedro Luis Hernandez MD Primary Care Provider [phone] Reason for Referral * Imaging (Routine) - Closed Specialty Diagnoses / Procedures Referred By Contac t Referred To Contact Radiology Diagnoses Bloody discharge from nipple Procedures US Breast Limited Right Cinthia Arroyo APRN [address] [place] [address] Phone: tel: fax: Referral ID Status Reason Start Date Expiration Date Visits Re quested Visits Authorized [id number] Closed 11/08/2020 05/07/2021 1 1 Encounter Details Date Type Department Care Team (Late st Contact Info) Description 11/08/2020 [facility] Only [facility] [address] [facility], [address]nd [place] [address] Cinthia Arroyo APRN [address] [place] [address] Bloody discharge from nipple (Primary Dx) Social History Tobacco Use Types [...] on file documented as of this encounter Results * (ABNORMAL) US Breast Limited Right (12/26/2020 9:11 AM EDT) Anatomical Region Laterality Modality Breast Right Ultrasound Impressions 12/26/2020 10:09 AM EDT Right Breast [...] DIAGNOSTIC TOMOSYNTHESIS BILATERAL ordered by CINTHIA ARROYO, [id number] CLINICAL INDICATION: History of right bloody nipple [...] BREAST DIAGNOSTIC TOMOSYNTHESIS BILATERALordered by CINTHIA ARROYO, [id number] CLINICAL INDICATION: History of right bloody nipple [...] on 12/26/2020 10:09 AM us Cinthia Arroyo PULLER OUT IMG BI PROCEDURES Final Res ult documented in this encounter Visit Diagnoses Diagnosis Bloody discharge from nipple- Primary Other sign and symptom in breast Bloody discharge from nipple Other sign and symptom in breast documented in this encounter Care Teams Auxiliary Equipment Operator Relationship Specialty Start Date End Date Jose Luis Viramontes MD [facility] [address] PCP - General 10/21/20 01/17/23 Pedro Luis Hernandez MD [facility] [address] PCP - General Internal Medicine 01/18/23 documented as of this encounter
--- OUTSIDE RECORDS SUMMARY | 2025-06-08 15:07 | XMS_ITS | Clinical Summary ---
Author Organization [facility] Address [address] [place] [address] Care Team Providers Care Reclaimer Name Role Phone Pedro Luis Hernandez MD Primary Care Provider [phone] Allergies Active Allergy Reactions Criticality Noted Date Comments Codeine Unknown - Patient st ates they do not know rxn details Low 07/04/2020 Hydrochlorothiazide Unknown - Patient st ates they do not know rxn details Low 08/05/2021 Medications losartan (Cozaar) 25 MG tablet Take 1 tablet (25 mg) by mouth 1 (one) time each day. 0.5 tab orally once a day Active aspirin 81 MG EC tablet 1 Active Daily Multiple Vitamins tablet 1 (one) time each day at the same time. Active metFORMIN XR (Glucophage-XR) 500 MG 24 hr tablet Take 1 tablet (500 mg) by mouth 1 (one) time each day with dinner. Do not crush, chew, or split. Active levothyroxine (Tirosint) 75 MCG capsule Take by mouth 1 (one) time each day before breakfast. Active atorvastatin (Lipitor) 40 MG tablet Take 1 tablet (40 mg) by mouth 1 (one) time each day. Active Magnesium Gluconate (MAGNESIUM 27 PO) Take by mouth. Activ e empagliflozin (Jardiance) 25 MG Take 1 tablet (25 mg) by mouth 1 (one) time each day. PATIENT NEEDS TO SCHEDULE AN APPOINTMENT TO RECEIVE FURTHER REFILLS 90 tablet 4 Active FLUoxetine (PROzac) 40 MG capsule Take 1 capsule by mouth daily. Active famotidine (Pepcid) 20 MG tablet Take 1 tablet by mouth daily. Active cetirizine (ZyrTEC) 10 MG tablet Take 2 tablets by mouth daily. Active Active Problems Problem Noted Date Diagnosed Date Acquired hypothyroidism 11/06/2022 Type 2 diabetes mellitus wit hout complication, without long-term current use of insulin 11/06/2022 Hyperlipidemia 11/06/2022 Obesity (BMI 30-39.9) 11/06/2022 Hammertoe 10/21/2020 Overview (11/09/2020): Other hammer toe(s) (acquired), left foot Plantar plate injury 08/05/2020 Foot pain 08/04/2020 Encounters Date Type Department Care Team Description 04/28/2025 1:15 PM EST - 04/28/2025 11:59 PM EST Hospital Encounter [facility] [address] [address] Encounter for screening mammogram for malignant neoplasm of breast Discharge Disposition: Home or Self Care 04/28/2025 Travel from Last 3 Months Family History Medical History Relation Name Comments Heart disease Brother CABG Father Coronary artery disease Father Lung cancer Maternal Grandfather Family history of lung cancer Throat cancer Maternal Grandfather Family history of throat cancer Breast cancer Mother's Sister Lung cancer Paternal Grandfather Family history of lung cancer Throat cancer Paternal Grandfather Family history of throat cancer Breast cancer Paternal Grandmother Family history of malignant neoplasm of breast Colon cancer Paternal Grandmother Family history of malignant neoplasm of colon Relation Name Status Comments Brother Father Maternal Grandfather Mother's Sister Paternal Grandfather Paternal Grandmother Social History Tobacco Use Types Packs/Day Years Used Date Smoking Tobacco: Never Smokeless Tobacco: Never Tobacco Cessation:Counseling Given: Not Answered Alcohol Use Standard Drinks/Week Comments No 0 (1 standard drink = 0.6 oz pure alcohol) Alcoholic Drinks/day: No history of alcohol use Comments No Sex and Gender Information Value Date Recorded Sex Assigned at Not on file Legal Sex Female 8:05 PM EDT Gender Identity Not on file Sexual Orientation Not on file Last Filed Vital Signs Vital Sign Reading Time Taken Comments Blood Pressure 113/71 11/06/2024 8:42 AM EDT Pulse 84 11/06/2024 8:42 AM EDT Temperature 37 C (98.6 F) 02/13/2022 8:39 AM EDT Respiratory Rate 18 12/28/2020 9:25 AM EDT Oxygen Saturation 96% 02/13/2022 8:39 AM EDT Inhaled Oxygen Concentration - - Weight 89.4 kg (197 lb) 04/28/2025 1:49 PM EST Height 172.7 cm (5' 8 ) 04/28/2025 1:49 PM EST Body Mass Index 29.95 04/28/2025 1:49 PM EST Plan of Treatment Health Maintenance Due Date Last Done Comments [facility]-Depression Screening 1972 [facility]-HIV Screening 1972 [facility]-Hepatitis C Screening 1972 [facility]-/Child/Adol SDOH Screenings 1972 Diabetes: Dental Exam 02/27/1982 [facility]- SDOH Screenings 02/27/1990 [facility]-Adult SDOH Screenings 02/27/1990 [facility]-DTaP,Tdap,and Td Vaccines (1 - Tdap) 02/27/1991 [facility]-Hepatitis B Vaccines (1 of 3 - 19+ 3-dose series) 02/27/1991 [facility]-Pneumococcal Vaccine: 50+ Years (1 of 2 - PCV) 02/27/1991 [facility]-Pap Smear 02/27/1993 [facility]-Cervical Cancer Screening 02/27/2002 [facility]-HPV/Cotest 02/27/2002 CT Colonography 02/27/2017 Colonoscopy 02/27/2017 FIT-DNA 02/27/2017 FIT 02/27/2017 FOBT 02/27/2017 Sigmoidoscopy 02/27/2017 [facility]-Colorectal Cancer Screening 02/27/2017 [id number] Vaccine (3 - Pfizer risk series) 10/07/2020 09/09/2020, 08/17/2020 [facility]-Zoster Vaccines (1 of 2) 02/27/2022 [facility]-Diabetes: Hemoglobin A1C 02/05/2025, 03/08/2023, 11/06/2022 [facility]-Breast Cancer Screening 04/28/202704/10, 03/04/2024, 01/18/2023, Additional history exists [facility]-Hepatitis A Vaccines Aged Out 07/29/2018 No longer eligible based on patient's age to complete this topic [facility]-Obesity Intervention Completed 025, 03/08/2023, 11/06/2022, Additional history exists [facility]-Influenza Vaccine Completed 02/10/2025 , 02/26/2024, 03/18/2023, Additional history exists HPV Vaccines (No Doses Required) Completed [facility]-HIB Vaccines Aged Out No longer e ligible based on patient's age to complete this topic [facility]-IPV Vaccines Aged Out No longer e ligible based on patient's age to complete this topic [facility]-Rotavirus Vaccines Aged Out No lo nger eligible based on patient's age to complete this topic Procedures Procedure Name Priority Date/Time Associated Diagnosis Comments MAMMOGRAPHY BREAST SCREENING TOMOSYNTHESIS BILATERAL Routine 04/28/2025 1:58 PM EST Encounter for screening mammogram for malignant neoplasm of breast POCT GLYCOSYLATED HEMOGLOBIN (HGB A1C) Routine 11/06/2024 8:52 AM EDT Type 2 diabetes mellitus without complication, without long-term current use of insulin from Last 3 Months or Most Recently Relevant to Health Maintenance Results * Mammography Breast Screening Tomosynthesis Bilateral [...] 15+years ago (Biopsy of right breast from [facility]) and right breast biopsy, 12/28/2020 (ultrasound core-Proliferative fibrocystic changes with prominent apocrine metaplasia. No atypical features identified.). COMPARISON STUDIES: Compared to: 12/26/2020 Mammography Breast Diagnostic Tomosynthesis Bilateral at [facility] 01/10/2022 Mammography Breast Screening Tomosynthesis Bilateral at [facility] 01/18/2023 Mammography Breast Screening Tomosynthesis Bilateral at [facility] 03/04/2024 Mammography Breast Screening Tomosynthesis Bilateral at [facility] BREAST COMPOSITION: There are scattered areas of fibroglandular density. FINDINGS: There are post-biopsy clip(s) present in the right breast. There is no evidence of suspicious masses, calcifications, or other abnormal findings. us Adela Bean MD IMG BI PROCEDURES Final Result * POCT glycosylated hemoglobin (Hb A1C) (11/06/2024 8:52 AM EDT) POCT Hemoglobin A1C 7.0 <5.7% Non-Diabet ic % [facility] Kit Lot Number [id number] [facility] Kit Expiration Date 09/07/26 [facility]ALTH[facility] Blood Venous blood specimen / Unknown 11/06/2024 8:52 AM EDT Roslyn Charlton MD POINT OF CARE TEST ENTER/EDIT ORDERABLES Final Result [facility] [address] [place] [id number] from Last 3 Months or Most Recently Relevant to Health Maintenance Insurance [facility] [employer] Care Teams Reclaimer Relationship Specialty Start Date End Date Pedro Luis Hernandez MD [facility] [address] PCP - General Internal Medicine 01/18/23
--- OUTSIDE RECORDS SUMMARY | 2025-06-08 15:07 | XMS_ITS | Encounter Summary ---
Author Organization [facility] Address [address] [place] [address] Care Team Providers Care Ornamental Metalwork Designer Name Role Phone Pedro Luis Hernandez MD Primary Care Provider [phone] Encounter Details Date Type Department Care Team (Latest Contact Info) Description 04/28/2025 Travel Social History Tobacco Use Types Packs/Day Years [...] on file documented as of this encounter Functional Status * Communicable Disease Screening Question Answer Date of Assessment Author Have you been in contact with someone who was sick? No / Unsure 04/28/2025 1:41 PM EST Clara Salcedo Do you have any of the following new or worsening symptoms? None of these 04/28/2025 1:41 PM EST Marry Salcedo * Travel Screening Question Answer Date of Assessment Author Have you traveled internatio pilar or domestically in the last month? No 04/28/2025 1:41 PM EST Marry Cervantes documented as of this encounter Mental Status * Communicable Disease Screening Question Answer Entry Date Author Have you been in contact with someone who was sick? No / Unsure 04/28/2025 1:41 PM EST Clara Salcedoeida L Do you have any of the following new or worsening symptoms? None of these 04/28/2025 1:41 PM EST Marry Salcedo * Travel Screening Question Answer Entry Date Author Have you traveled internatio pilar or domestically in the last month? No 04/28/2025 1:41 PM EST Pe Marry lenz documented in this encounter Plan of Treatment Not on file documented as of this encounter Visit Diagnoses Not on filedocumented in this encounter Additional Health Concerns Assessment Noted Time A fall risk assessment has been complete d for the patient 11/06/2022 9:33 AM EDT A Body Mass Index follow-up plan has been documented for the patient 11/10/2024 3:56 PM EDT documented as of this encounter Care Teams Ornamental Metalwork Designer Relationship Specialty Start Date End Date Pedro Luis Hernandez MD [facility] [address] PCP - General Internal Medicine 01/18/23 documented as of this encounter
--- OUTSIDE RECORDS SUMMARY | 2025-06-08 15:07 | XMS_ITS | Patient Health Record ---
Author Organization [facility] Address [address] [place] [address] Care Team Providers Care Acid Dipper Name Role Phone Pedro Luis Hernandez Primary Care Provider [phone] Pedro Luis Hernandez Unavailable Unavailable Evangelina Shelby Unavailable [phone] Migration, Provider Unavailable Unavailable Allergies Allergen (clinical drug ingredient) Drug/Non Drug Allergy documented on EMR Reaction Allergy Type Onset Date Status hydrochlorothiazide hydroCHLOROthiazide dizziness D rug Allergy Active codeine Codeine hives, SOA Drug Allergy Active Results Component Value Reference Range Flag Notes BASIC METABOLIC PANEL (53381 ) Reviewed date:05/19/2025 03:20:15 PM Interpretation: Performing Lab:CB, [facility] [address], [facility] Lonnie Douglas Notes/Report: NON-FASTING; NON-FASTING GLUCOSE 124 65-99 mg/dL H follow-up test. For someone without known diabetes, a glucose value prediabetes and should be confirmed with a Fasting reference interval between 100 and 125 mg/dL is consistent with UREA NITROGEN (BUN) 20 7-25 mg/dL N CREATININE 0.57 0.50-1.03 mg/dL N EGFR 109 > OR = 60 mL/min/1.73m2 N BUN/CREATININE RATIO SEE NOTE: 6-22 (calc) reference range. Not Reported: BUN and Creatinine are within SODIUM 137 135-146 mmol/L N POTASSIUM 4.4 3.5-5.3 mmol/L N CHLORIDE 103 98-110 mmol/L N CARBON DIOXIDE 26 20-32 mmol/L N CALCIUM 9.3 8.6-10.4 mg/dL N HEMOGLOBIN A1c (496) Reviewed date:05/19/2025 03:20:15 PM Interpretation: Performing Lab:STEF[facility]IE [facility] [address], [place]nbh[place] Lonnie Douglas Notes/Report: NON-FASTING; NON-FASTING HEMOGLOBIN A1c 7.5 <5.7 % H that their diabetes is well controlled and a value test. duration of diabetes, age, comorbid conditions, and Currently, no consensus exists regarding use of control. A1c targets should be individualized based on diabetes and this should be confirmed with a follow-up For someone with known diabetes, a value <7% indicates other considerations. greater than or equal to 7% indicates suboptimal hemoglobin A1c for diagnosis of diabetes for children. For someone without known diabetes, a hemoglobin A1c value of 6.5% or greater indicates that they may have Rapid Strep (Not yet reviewe d by provider) Interpretation: Performing Lab: Notes/Report: Rapid screen neg HEMOGLOBIN A1c (496) Reviewed date:02/15/2025 02:50:24 PM Interpretation: Performing Lab:STEFANIE [facility] [address], [place] Lonnie Douglas Notes/Report: NON-FASTING; NON-FASTING; NON-FASTING; NON-FASTING FASTING:YES FASTING: YES HEMOGLOBIN A1c 7.7 <5.7 % H test. control. A1c targets should be individualized based on other considerations. duration of diabetes, age, comorbid conditions, and diabetes and this should be confirmed with a follow-up hemoglobin A1c for diagnosis of diabetes for children. value of 6.5% or greater indicates that they may have greater than or equal to 7% indicates suboptimal that their diabetes is well controlled and a value For someone with known diabetes, a value <7% indicates For someone without known diabetes, a hemoglobin A1c Currently, no consensus exists regarding use of COMPREHENSIVE METABOLIC PANE L (20380) Reviewed date:02/15/2025 02:50:24 PM Interpretation: Performing Lab:STEF[facility]IE [facility] [address], [place]J[address] Lonnie Douglas Notes/Report: NON-FASTING; NON-FASTING; NON-FASTING; NON-FASTING FASTING:YES FASTING: YES GLUCOSE 131 65-99 mg/dL H value >125 mg/dL indicates that they may have Fasting reference interval follow-up test. For someone without known diabetes, a glucose diabetes and this should be confirmed with a UREA NITROGEN (BUN) 17 7-25 mg/dL N CREATININE 0.55 0.50-1.03 mg/dL N EGFR 110 > OR = 60 mL/min/1.73m2 N BUN/CREATININE RATIO SEE NOTE: 6-22 (calc) Not Reported: BUN and Creatinine are within reference range. SODIUM 139 135-146 mmol/L N POTASSIUM 4.2 3.5-5.3 mmol/L N CHLORIDE 104 98-110 mmol/L N CARBON DIOXIDE 27 20-32 mmol/L N CALCIUM 9.1 8.6-10.4 mg/dL N PROTEIN, TOTAL 7.0 6.1-8.1 g/dL N ALBUMIN 4.6 3.6-5.1 g/dL N GLOBULIN 2.4 1.9-3.7 g/dL (calc) N ALBUMIN/GLOBULIN RATIO 1.9 1.0-2.5 (calc) N BILIRUBIN, TOTAL 1.8 0.2-1.2 mg/dL H ALKALINE PHOSPHATASE 60 37-153 U/L N AST 32 10-35 U/L N ALT 45 6-29 U/L H LIPID PANEL, STANDARD (7600) Reviewed date:02/15/2025 02:50:24 PM Interpretation: Performing Lab:STEFANIE, [facility] [address] [facility], [facility] HomeSfrxVI[address] Lonnie Douglas Notes/Report: NON-FASTING; NON-FASTING; NON-FASTING; NON-FASTING FASTING:YES FASTING: YES CHOLESTEROL, TOTAL 161 <200 mg/dL N HDL CHOLESTEROL 52 > OR = 50 mg/dL N TRIGLYCERIDES 274 <150 mg/dL H repeat triglyceride testing on a fasting specimen if clinically indicated. If a non-fasting specimen was collected, consider Rogelio et al. J. of Clin. Lipidol. 2015;9:129-169. LDL-CHOLESTEROL 73 N (http://[employer]/faq/MVN533) Desirable range <100 mg/dL for primary prevention; better accuracy than the Friedewald equation in the Sebastien GONZALEZ et al. OCTAVIO. 2013;310(19): 2724-5938 with > or = 2 CHD risk factors. Reference range: <100 calculation, which is a validated novel method providing <70 mg/dL for patients with CHD or diabetic patients LDL-C is now calculated using the Roma-Ackerman estimation of LDL-C. CHOL/HDLC RATIO 3.1 <5.0 (calc) N NON HDL CHOLESTEROL 109 <130 mg/dL (calc) N (LDL-C of <70 mg/dL) is considered a therapeutic factor, treating to a non-HDL-C goal of <100 mg/dL For patients with diabetes plus 1 major ASCVD risk option. THYROID PANEL WITH TSH (7444 ) Reviewed date:02/15/2025 02:50:24 PM Interpretation: Performing Lab:STEFANIE [facility] [employer], Pub[place]oderApniAE[address] Lonnie Douglas Notes/Report: NON-FASTING; NON-FASTING; NON-FASTING; NON-FASTING FASTING:YES FASTING: YES T3 UPTAKE 31 22-35 % N T4 (THYROXINE), TOTAL 9.8 5.1-11.9 mcg/dL N FREE T4 INDEX (T7) 3.0 1.4-3.8 N TSH 2.07 N Second trimester 0.55-2.73 > or = 20 Years 0.40-4.50 First trimester 0.26-2.66 Third trimester 0.43-2.91 Ranges Reference Range Microalbumin (In-House) Reviewed date:02/10/2025 02:00:45 PM Interpretation: Performing Lab: Notes/Report: ALB 30mg CRE 100mg A:C <30mg Urinalysis Reviewed date:02/10/2025 02:00:45 PM Interpretation: Performing Lab: Notes/Report: Color/Clarity yellow Leuk neg Nitrite neg Urobili 0.2 Protein neg pH 5.0 Blood neg Sp. Gr. 1.020 Ketone neg Bili neg Glucose neg HEMOGLOBIN A1c (496) Reviewed date:07/15/2024 11:54:40 AM Interpretation: Performing Lab:STEFANIE [address] [address], PubCoderMdygCE[address] oLnnie Douglas Notes/Report: NON-FASTING; NON-FASTING; NON-FASTING FASTING:YES FASTING: YES HEMOGLOBIN A1c 7.6 <5.7 % of total Hgb H Currently, no consensus exists regarding use of hemoglobin A1c for diagnosis of diabetes for children. greater than or equal to 7% indicates suboptimal that their diabetes is well controlled and a value value of 6.5% or greater indicates that they may have For someone without known diabetes, a hemoglobin A1c duration of diabetes, age, comorbid conditions, and test. control. A1c targets should be individualized based on diabetes and this should be confirmed with a follow-up For someone with known diabetes, a value <7% indicates other considerations. COMPREHENSIVE METABOLIC PANE Jessica (87670) Reviewed date:07/15/2024 11:54:40 AM Interpretation: Performing Lab:STEFANIE, [facility] [address] [facility], [place] SuggsOfnjTV[address] Lonnie Douglas Notes/Report: NON-FASTING; NON-FASTING; NON-FASTING FASTING:YES FASTING: YES GLUCOSE 131 65-99 mg/dL H value >125 mg/dL indicates that they may have follow-up test. For someone without known diabetes, a glucose Fasting reference interval diabetes and this should be confirmed with a UREA NITROGEN (BUN) 15 7-25 mg/dL N CREATININE 0.54 0.50-1.03 mg/dL N EGFR 111 > OR = 60 mL/min/1.73m2 N BUN/CREATININE RATIO SEE NOTE: 6-22 (calc) reference range. Not Reported: BUN and Creatinine are within SODIUM 141 135-146 mmol/L N POTASSIUM 4.5 3.5-5.3 mmol/L N CHLORIDE 106 98-110 mmol/L N CARBON DIOXIDE 27 20-32 mmol/L N CALCIUM 9.3 8.6-10.4 mg/dL N PROTEIN, TOTAL 6.6 6.1-8.1 g/dL N ALBUMIN 4.4 3.6-5.1 g/dL N GLOBULIN 2.2 1.9-3.7 g/dL (calc) N ALBUMIN/GLOBULIN RATIO 2.0 1.0-2.5 (calc) N BILIRUBIN, TOTAL 1.7 0.2-1.2 mg/dL H ALKALINE PHOSPHATASE 49 37-153 U/L N AST 29 10-35 U/L N ALT 45 6-29 U/L H LIPID PANEL, STANDARD (7600) Reviewed date:07/15/2024 11:54:40 AM Interpretation: Performing Lab:STEFANIE, [facility] [address], [place] JrujJD[address] Lonnie Douglas Notes/Report: NON-FASTING; NON-FASTING; NON-FASTING FASTING:YES FASTING: YES CHOLESTEROL, TOTAL 141 <200 mg/dL N HDL CHOLESTEROL 43 > OR = 50 mg/dL L TRIGLYCERIDES 204 <150 mg/dL H Rogelio et al. J. of Clin. Lipidol. 2015;9:129-169. if clinically indicated. repeat triglyceride testing on a fasting specimen If a non-fasting specimen was collected, consider LDL-CHOLESTEROL 71 N Sebastien GONZALEZ et al. OCTAVIO. 2013;310(19): 8471-1983 calculation, which is a validated novel method providing with > or = 2 CHD risk factors. estimation of LDL-C. Reference range: <100 <70 mg/dL for patients with CHD or diabetic patients LDL-C is now calculated using the [facility] (http://[employer]/faq/DXH394) better accuracy than the Friedewald equation in the Desirable range <100 mg/dL for primary prevention; CHOL/HDLC RATIO 3.3 <5.0 (calc) N NON HDL CHOLESTEROL 98 <130 mg/dL (calc) N (LDL-C of <70 mg/dL) is considered a therapeutic factor, treating to a non-HDL-C goal of <100 mg/dL option. For patients with diabetes plus 1 major ASCVD risk Reason For Referral Reason Endocrinology Referr adalid Edwards Diagnosis 1 Hyperlipidemia, unsp ecified (E78.5) Diagnosis 2 Type 2 diabetes chauncey itus with other specified complication (E11.69) Diagnosis 3 Celiac disease (K90. 0) Diagnosis 4 Hypothyroidism (acqu ired) (E03.9) Referral Organization [facility] Referring Provider First Name Pedro Luis Referring Provider Last Name Mary Referring Provider Speciality Internal M edicine Referred Organization Referrals Referred Address [address] [place], [place],[address],[place] Referred Provider Specialty Endocrinolog y General Notes Chen De La Paz 2024 03:50:25 PM >Placed through [facility] Referral Priority Routine Referral Appointment Date 11/06/2024 Medications Medication SIG (Take, Route, Frequency, Duration) Notes Start Date End Date Status Albuterol Sulfate HFA 108 (90 Base) MCG/ACT Aerosol Solution 2 INH inhaled every 6 hours as needed for wheezing or shortness of breath; Duration: 30 days 05/18/2024 Active ZyrTEC Allergy 10 MG Tablet 2 tabs orally once a day Active Losartan Potassium 25 MG Tablet 1 tab(s) orally once a day; Duration: 84 days Active Atorvastatin Calcium 40 MG Tablet Take 1 tablet by mouth once daily; Duration: 90 Active Synthroid 75 MCG Tablet 1 tab(s) orally once a day; Duration: 90 days Active FLUoxetine HCl 40 MG Capsule Take 1 capsule by mouth once daily for 90 days; Duration: 90 Active Famotidine 20 MG Tablet 1 tab(s) orally once a day; Duration: 90 days Active Multivitamin - Tablet 1 tab(s) orally once a day; Duration: 30 day(s) Active Magnesium 400MG 1 TABLET ONCE A DAY Active metFORMIN HCl 1000 MG Tablet Take 1 tablet by mouth twice daily; Duration: 30 Active Aspirin 81 MG Tablet Delayed Release 1 tab(s) orally once a day Active Jardiance 25 MG Tablet TAKE 1 TABLET BY MOUTH ONCE DAILY IN THE MORNING FOR 90 DAYS; Duration: 90 Active Diclofenac Sodium 1 % Gel as directed applied topically 4 times a day prn prn Active Rybelsus 7 MG Tablet 1 tablet at least 30 minutes before first food, beverage or other oral medicine of the day Orally Once a day; Duration: 30 days 05/19/2025 Active PEN NEEDLES, 31GX1/4 1 SUBCUTANEOUSLY ONCE WEEKLY; Duration: 30 DAYS *Please review for potential replacement for e-prescription and drug interaction check* Active Immunizations Vaccine Route Administration Date Status Comme nts Flublok IM Intramuscular 04/30/2022 Administered Flublok IM Intramuscular 02/26/2024 Administered FLUCELVAX IM Intramuscular 02/10/2025 Administered FLUZONE 6MO - OLDER IM Intramuscular 03/18/2023 Administer ed Hep A Adult 2 Dose IM Intramuscular 07/29/2018 Administere d Social History Tobacco Use: Social History Observation Description Date Details (start date - stop date) Never Smoker NA - NA Social History Social History Social Info Question Answer Notes Smoking: Are you a: nonsmoker Additional Details Category Social Info Options Details Social History 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 Travel outside [place]: no Alcohol: socially very rarely Sexually active: no Recreational drug use: no Exercise: yes Home smoke detector use: yes Caffeine: yes frequency:tea da almita Living Will No Problems Problem Type SNOMED Code ICD Code Onset Dates Problem Status W/U Status Risk Notes Problem Type 2 diabetes mellitus with other specified complication (E11.69) Active confirmed Problem Celiac disease (107833354) Celiac disease (K90.0) Active confirmed Problem Idiopathic urticaria (74842943) Idiopathic urticaria (L50.1) Active confirmed Problem Obese class I (finding) (841056051070148 ) Obesity (BMI 30.0-34.9) (E66.9) Active confirmed Problem Hypothyroidism (06247679) Hypothyroidism (acquired) (E03.9) Active confirmed Problem Arthritis (9157147) Arthritis (M19.90) Active confirmed Problem Neuropathy (051874952) Neuropathy (G62.9) Active confirmed Problem Essential hypertension (24490128) Essential hypertension (I10) Active confirmed Problem Hyperlipidemia (13485408) Hyperlipidemia, unspecified (E78.5) Active confirmed Problem Insomnia disorder related to another mental disorder (61038045) Psychophysiological insomnia (F51.04) Active confirmed Problem Uncomplicated moderate persistent asthma (520079985) Moderate persistent asthma without complication (J45.40) Active confirmed Problem Diverticular disease of colon (435559785) Diverticulosis (K57.90) Active confirmed Problem Gluten intolerance (4834052025) Gluten intolerance (K90.41) Active confirmed Problem Seasonal affective disorder (559270994) Seasonal affective disorder (F33.8) Active confirmed Vital Signs Heart Rate 98 /min 06/08/2025 Temperature 97.5 degrees Fahrenheit 06/08/2025 Blood pressure diastolic 92 mm Hg 06/08/2025 Height 67 in 06/08/2025 Blood pressure systolic 132 mm Hg 06/08/2025 Weight 202.8 lbs 06/08/2025 BMI 31.76 kg/m2 06/08/2025 Encounters Encounter Location Date Provider Diagnosis [facility] [address] [place], [place] [address] 09/12/2024 Provider Migration [facility] [address] [place], [place] [address] 07/13/2024 Pedro Luis Hernandez Type 2 diabetes mellitus with other specified complication E11.69 ; Hyperlipidemia, unspecified E78.5 ; Celiac disease K90.0 and Idiopathic urticaria L50.1 [facility] [address] [place], [place] [address] 02/10/2025 Pedro Luis Besson Essential hypertensi on I10 ; Hypothyroidism (acquired) E03.9 ; Type 2 diabetes mellitus without complication, without long-term current use of insulin E11.9 ; Encounter for immunization Z23 and Routine medical exam Z00.00 [facility] [address] [place], [place] [address] 05/17/2025 Pedro Luis Besson Type 2 diabetes mellitus with other specified complication E11.69 [facility] [address] [place], [place] [address] 06/08/2025 Evangelina Shelby Sore throat J02.9 an d Acute URI J06.9 [facility] [address] [place], [place] [address] 07/15/2024 Pedro Luis Besson [facility] [place] [address] [place] [address] 07/30/2024 Pedro Luis Besson [facility] [place] [address] [place] [address] 09/02/2024 Pedro Luis Besson [facility] [place] [address] [place] [address] 11/03/2024 Pedro Luis Besson [facility] [place] [address] [place] [address] 11/23/2024 Pedro Luis Besson [facility] [place] [address] [place] [address] 02/15/2025 Pedro Luis Besson [facility] [place] [address] [place] [address] 03/17/2025 Pedro Luis Besson [facility] [address] [facility] [address] [place], [place] [address] 05/19/2025 Pedro Luis Besson Assessments Encounter Date Diagnosis (ICD Code) Assessment Notes Treatment Notes Treatment Clinical Notes Section Notes 07/13/2024 Type 2 diabetes mellitus with other specified complication (ICD-10 - E11.69) Overall has done well, lost some weight, blood pressure under good control. Check A1c and lipid profile today. Please note I will review all labs personally and respond to these as appropriate 07/13/2024 Hyperlipidemia, unspecified (ICD-10 - E78.5) 02/10/2025 Hypothyroidism (acquired) (ICD-10 - E03.9) Will repeat TSH today. 02/10/2025 Essential hypertension (ICD-10 - I10) Blood pressure under good control, on appropriate medication given her diabetes 05/17/2025 Type 2 diabetes mellitus with other specified complication (ICD-10 - E11.69) Repeat A1c today; goal = 7.0% If not at goal, will increase Rybelsus to 7 mg dose for more adequate glycemic control if patient is agreeable Discussed adverse effects 06/08/2025 Sore throat (ICD-10 - J02.9) 06/08/2025 [...] at this time but return precautions reviewed 02/10/2025 Type 2 diabetes mellitus without complication, without long-term current use of insulin (ICD-10 - E11.9) Does have A1c above goal (7.2), however, she does not want to take any more medications and GLP-1s cause GI side effects. WIll do A1c, CMP and UAC today to check for signs diabetic nephropathy. If elevated protein, will encourage tigher glycemic control. Regardless, continue to exercise and dietary modicifation for weight loss. 07/13/2024 Celiac disease (ICD-10 - K90.0) Better on gluten-free/low -carb diet 07/13/2024 Idiopathic urticaria (ICD-10 - L50.1) Less urticaria on low-carb diet, possibly from gluten issues? 02/10/2025 Encounter for immunization (ICD-10 - Z23) 02/10/2025 Routine medical exam (ICD-10 - Z00.00) Up-to-date with cancer screening. Non-smoker, good exercise. Depression screening negative. Flu shot today. Otherwise up-to-date with vaccines. Plan Of Treatment Pending Test Test Name Order Date Rapid Strep 06/08/2025 C-TRANSFERRIN 06/14/2020 C-CMP 02/19/2020 C-LIPID PANEL 02/19/2020 C-TSH 05/20/2020 C-BOOGIE 05/20/2020 C-IRON 06/14/2020 C-HGBA1C 02/19/2020 M-Complete Blood Count Auto Diff 025 M-Complete Blood Count Auto Diff 021 M-Comprehensive Metabolic Panel 04/21/20 21 M-Basic Metabolic Panel 06/08/2025 M-Ferritin 04/21/2021 M-Vitamin B12 04/21/2021 M-Iron and TIBC 04/21/2021 M-COVID PCR SINGLE RAPID 12/30/2020 Hepatitis Acute Profile 03/29/2022 RPR (Non-Treponemal) reflex to confirmat ion 03/29/2022 Physical Therapy Eval and Treat 09/27/19 IRON, TIBC AND FERRITIN PANEL (5616) CBC (INCLUDES DIFF/PLT) (6399) 3 Next Appt Details Provider Name:Pedro Luis Hernandez, 08/11/2025 09:00:00 AM, [address], [place], [address], Insurance Providers Payer Name Payer Address Payer Phone Subscriber Number Group Number Insured Name Patient Relationship to Insured Coverage Start Date Coverage End Date [employer]ICA[employer] [address] [address] [place] [address] [id number] Yoko Jovel Self - patient is the insured Medications Administered Medication Instructions Date of Administration Dosage Notes Dexamethasone 4mg Injection 07/18/2023 4 mg Medical (General) History Medical History History ICD Code Asthma Celiac disease Diverticulosis Mammogram yearly in Feb with [facility] High cholesterol Seasonal Affective Disorder Hives Type 2 DM Surgical History Surgery Date(Month/Year) carpal tunnel-both wrist sigmoid color removed 2004 hammer toe reconstruction/plate repair-l t foot 09/2020 Hospitalization History Reason Date(Month/Year) kicked by a horse in the stomach 1992 child 2005 sigmoid colon removed 2004
[2025-06-08 15:27] LABS: Hematocrit 44.5 % (37.0-47.0); Hemoglobin 15.3 g/dL (12.2-16.2); Immature Granulocytes % 0.3 %; Mean Corpuscular HGB Conc 34.4 g/dL (31.8-35.4); Mean Corpuscular Hemoglobin 30.2 pg (27.0-31.2); Mean Corpuscular Volume 87.9 fl (81-99); Nucleated Red Blood Cells % 0 %; Platelet Count 251 K/mm3 (142-424); Red Blood Count 5.06 M/mm3 (4.20-5.40); Red Cell Distribution Width-SD 38.4 fL; White Blood Count 7.3 K/mm3 (4.8-10.8)
[2025-06-08 16:07] LABS: Anion Gap 14.3 mEq/L (5-15); Blood Urea Nitrogen 15 mg/dl (7-17); Calcium 9.7 mg/dl (8.4-10.2); Carbon Dioxide 24 mmol/L (22.0-30.0); Chloride 105 mmol/L (98-107); Creatinine,Serum 0.60 mg/dl (0.52-1.04); Estimated Glomerular Filt Rate 105 ml/min (>60); GFR (African American) 127 ML/MIN (>60); Glucose 164 mg/dl (74-100); Potassium 4.3 mmoL/L (3.5-5.1); Sodium 139 mmol/L (136-145)
== END 2025-06-08 23:59 | disposition home or self-care (01) ==
LOC: LAB 15:04
PROVIDERS: PCP Internal Medicine Adolescent Medicine; Visit Provider Nurse Practitioner Family
DX: J06.9 Acute upper respiratory infection, unspecified (principal)
CPT/HCPCS: 36415; 80048; 85025